=== PATIENT | male | born 1935 | race Caucasian/White ===

== ENCOUNTER 2016-04-27 12:32 | Emergency (ER) | payer MEDICARE ==
--- NOTE | 2016-04-27 16:15 | Emergency Department Record ---
History of Present Illness - General Chief complaint: Pain Stated complaint: L SHOULDER INJURY Time Seen by Provider: 04/27/16 13:03 Source: Patient, Family Mode of Arrival: Wheelchair Limitations: No limitations - History of Present Illness Initial comments: pt fell injuring his l shoulder back l hip and hit head. pt has l sided shoulder, hip and back pain. he aalso hit his head. 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 MD Complaint: Extremity pain, Joint pain, Joint swelling Onset/Timin -: Days(s) Location: Left, Shoulder, Thigh Severity scale (1-10): 3 Quality: Aching Consistency: Constant Improves with: Nothing Worsens with: Palpation Associated Symptoms: Other (back pain) - Related Data Home Medications Medication Instructions Recorded Confirmed Last Taken Clopidogrel Bisulfate [Plavix] 75 mg PO DAILY 04/29/14 04/27/16 1 Day Ago Ezetimibe/Simvastatin [Vytorin 1 each PO DAILY 04/29/14 04/27/16 1 Day Ago 10-40 mg Tablet] Sertraline HCl 100 mg PO DAILY 04/29/14 04/27/16 1 Day Ago Previous Rx's Medication Instructions Recorded Hydrocodone/Acetaminophen [[place] 0.5 - 1 tab PO TID PRN #7 tab 04/27/16 5mg/325mg] Allergies Allergy/AdvReac Type Severity Reaction Status Date / Time Penicillins Allergy Intermediate HIVES Verified 04/27/16 12:51 erythromycin lactobionate Allergy HIVES Verified 04/27/16 12:52 [From Erythrocin] Travel Screening - Travel/Exposure Within Last 30 Days Have you traveled within the last 30 days?: No - Travel/Exposure Within Last Year Have you traveled outside the [place] in the last year?: No - Additonal Travel Details Have you been exposed to anyone with a communicable illness?: No - Travel Symptoms Symptom Screening: None Review of Systems Reviewed: No additional complaints except as noted below Constitutional: Reports: As per HPI. Denies: Chills, Fever, Malaise, Night sweats, Weakness, Weight change Eyes: Reports: As per HPI. Denies: Eye discharge, Eye pain, Photophobia, Vision change ENT: Reports: As per HPI. Denies: Congestion, Dental pain, Ear pain, Epistaxis , Hearing loss, Throat pain Respiratory: Reports: As per HPI. Denies: Cough, Dyspnea, Hemoptysis, Stridor, Wheezes Cardiovascular: Reports: As per HPI. Denies: Arrhythmia, Chest pain, Dyspnea on exertion, Edema, Murmurs, Orthopnea, Palpitations, Paroxysmal nocturnal dyspnea, Rheumatic Fever, Syncope Endocrine: Reports: As per HPI. Denies: Fatigue, Heat or cold intolerance, Polydipsia, Polyuria Gastrointestinal: Reports: As per HPI. Denies: Abdominal pain, Constipation, Diarrhea, Hematemesis, Hematochezia, Melena, Nausea, Vomiting Genitourinary: Reports: As per HPI. Denies: Dysuria, Frequency, Hematuria, Incontinence, Retention, Testicular pain, Testicular mass, Urgency Musculoskeletal: Reports: As per HPI. Denies: Arthralgia, Back pain, Gout, Joint swelling, Myalgia, Neck pain Skin: Reports: As per HPI. Denies: Bruising, Change in color, Change in hair/ nails, Lesions, Pruritus, Rash Neurological: Reports: As per HPI. Denies: Abnormal gait, Confusion, Headache, Numbness, Paresthesias, Seizure, Tingling, Tremors, Vertigo, Weakness Psychiatric: Reports: As per HPI. Denies: Anxiety, Auditory hallucinations, Depression, Homicidal thoughts, Suicidal thoughts, Visual hallucinations Hematological/Lymphatic: Reports: As per HPI. Denies: Anemia, Blood Clots, Easy bleeding, Easy bruising, Swollen glands Past Medical History - SOCIAL HISTORY Smoking Status: Never smoker Alcohol Use: None Drug Use: None - RESPIRATORY Hx Respiratory Disorders: Yes Hx of CPAP: Yes - CARDIOVASCULAR Hx Cardio Disorders: Yes Hx Hypertension: Yes - NEURO Hx Neuro Disorders: Yes Hx CVA: Yes (2002, 2005 X2, Left side weakness) Hx Seizures: No - GI Hx GI Disorders: No - Hx Genitourinary Disorders: Yes Hx Kidney Stones: Yes (hx) - ENDOCRINE Hx Endocrine Disorders: No - MUSCULOSKELETAL Hx Musculoskeletal Disorders: Yes Hx Arthritis: Yes - PSYCH Hx Psych Problems: Yes Hx Anxiety: Yes Hx Depression: Yes - HEMATOLOGY/ONCOLOGY Hx Hematology/Oncology Disorders: No Family Medical History Any Significant Family History?: Yes Hx Cancer: Father Hx Diabetes: Brother/Sister *Diabetes Comment: aunt Hx Heart Disease: Mother *Heart Comment: CHF Hx Kidney Disease: Brother/Sister Hx Resp Disorders: Brother/Sister Physical Exam - General General Appearance: Alert, Oriented x3, Cooperative, Mild distress - Head Head exam: Normal inspection - Eye Eye exam: Normal appearance, PERRL, EOMI Pupils: Normal accommodation - ENT ENT exam: Normal exam, Mucous membranes moist, Normal external ear exam, Normal orophraynx, TM's normal bilaterally Ear exam: Normal external inspection. negative: External canal tenderness Nasal Exam: Normal inspection. negative: Discharge, Sinus tenderness Mouth exam: Normal external inspection, Tongue normal Teeth exam: Normal inspection. negative: Dental caries Throat exam: Normal inspection. negative: Tonsillar erythema, Tonsillar exudate - Neck Neck exam: Normal inspection, Full ROM. negative: Tenderness - Respiratory Respiratory exam: Normal lung sounds bilaterally. negative: Respiratory distress - Cardiovascular Cardiovascular Exam: Regular rate, Normal rhythm, Normal heart sounds - GI/Abdominal GI/Abdominal exam: Soft, Normal bowel sounds. negative: Tenderness - Rectal Rectal exam: Deferred - exam: Deferred - Extremities Extremities exam: Normal capillary refill, Tenderness. negative: Full ROM Image of Full Body: 1 - swelling w ecchymosis and tenderness 2 - tender 3 - tender - Back Back exam: Reports: Normal inspection, Full ROM. Denies: Muscle spasm, Rash noted, Tenderness - Neurological Neurological exam: Alert, CN II-XII intact, Normal gait, Oriented X3 - Psychiatric Psychiatric exam: Normal affect, Normal mood - Skin Skin exam: Dry, Intact, Normal color, Warm Course Vital Signs 04/27/16 12:36 Temperature 98.3 F Pulse Rate 76 Respiratory 18 Rate Blood Pressure 145/86 Pulse Ox 97 Medical Decision Making - Management Options MDM Management: Additional Work-up Planned (e.g. ADM/Transfer/OP Study) - Data Complexity MDM Data: X-Ray Ordered and/or Reviewed - Radiology Data Radiology results: Report reviewed, Image reviewed Disposition Disposition: Discharge Clinical Impression: Multiple Bruises Disposition: Home, Self-Care Condition: (1) Good Instructions: Contusion in Adults (ED), Pain Management in the Elderly (ED), Fall Prevention for Older Adults (ED) Additional Instructions: follow up with family doctor. return sooner if worse. ice to sore areas Prescriptions: Hydrocodone/Acetaminophen [[place] 5mg/325mg] 0.5 - 1 tab PO TID PRN #7 tab PRN Reason: Pain - General
[2016-04-27] MEDS ORDERED: HYDROCODONE/APAP 5/325MG TABLET PO ONE (17:40)
--- NOTE | 2016-04-27 17:46 | Emergency Department Record ---
History of Present Illness - General Chief complaint: Pain Stated complaint: L SHOULDER INJURY Time Seen by Provider: 04/27/16 13:03 Source: Patient, Family Mode of Arrival: Wheelchair Limitations: No limitations - History of Present Illness Onset/Timin -: Days(s) Location: Left, Shoulder, Thigh Severity scale (1-10): 3 Quality: Aching Consistency: Constant Improves with: Nothing Worsens with: Palpation Associated Symptoms: Other (back pain) - Related Data Home Medications Medication Instructions Recorded Confirmed Last Taken Clopidogrel Bisulfate [Plavix] 75 mg PO DAILY 04/29/14 04/27/16 1 Day Ago Ezetimibe/Simvastatin [Vytorin 1 each PO DAILY 04/29/14 04/27/16 1 Day Ago 10-40 mg Tablet] Sertraline HCl 100 mg PO DAILY 04/29/14 04/27/16 1 Day Ago Previous Rx's Medication Instructions Recorded Hydrocodone/Acetaminophen [[place] 0.5 - 1 tab PO TID PRN #7 tab 04/27/16 5mg/325mg] Allergies Allergy/AdvReac Type Severity Reaction Status Date / Time Penicillins Allergy Intermediate HIVES Verified 04/27/16 12:51 erythromycin lactobionate Allergy HIVES Verified 04/27/16 12:52 [From Erythrocin] Travel Screening - Travel/Exposure Within Last 30 Days Have you traveled within the last 30 days?: No - Travel/Exposure Within Last Year Have you traveled outside the [place] in the last year?: No - Additonal Travel Details Have you been exposed to anyone with a communicable illness?: No - Travel Symptoms Symptom Screening: None Review of Systems Constitutional: Reports: As per HPI. Denies: Chills, Fever, Malaise, Night sweats, Weakness, Weight change Eyes: Reports: As per HPI. Denies: Eye discharge, Eye pain, Photophobia, Vision change ENT: Reports: As per HPI. Denies: Congestion, Dental pain, Ear pain, Epistaxis , Hearing loss, Throat pain Respiratory: Reports: As per HPI. Denies: Cough, Dyspnea, Hemoptysis, Stridor, Wheezes Cardiovascular: Reports: As per HPI. Denies: Arrhythmia, Chest pain, Dyspnea on exertion, Edema, Murmurs, Orthopnea, Palpitations, Paroxysmal nocturnal dyspnea, Rheumatic Fever, Syncope Endocrine: Reports: As per HPI. Denies: Fatigue, Heat or cold intolerance, Polydipsia, Polyuria Gastrointestinal: Reports: As per HPI. Denies: Abdominal pain, Constipation, Diarrhea, Hematemesis, Hematochezia, Melena, Nausea, Vomiting Genitourinary: Reports: As per HPI. Denies: Dysuria, Frequency, Hematuria, Incontinence, Retention, Testicular pain, Testicular mass, Urgency Musculoskeletal: Reports: As per HPI. Denies: Arthralgia, Back pain, Gout, Joint swelling, Myalgia, Neck pain Skin: Reports: As per HPI. Denies: Bruising, Change in color, Change in hair/ nails, Lesions, Pruritus, Rash Neurological: Reports: As per HPI. Denies: Abnormal gait, Confusion, Headache, Numbness, Paresthesias, Seizure, Tingling, Tremors, Vertigo, Weakness Psychiatric: Reports: As per HPI. Denies: Anxiety, Auditory hallucinations, Depression, Homicidal thoughts, Suicidal thoughts, Visual hallucinations Hematological/Lymphatic: Reports: As per HPI. Denies: Anemia, Blood Clots, Easy bleeding, Easy bruising, Swollen glands Past Medical History - SOCIAL HISTORY Smoking Status: Never smoker Alcohol Use: None Drug Use: None - RESPIRATORY Hx Respiratory Disorders: Yes Hx of CPAP: Yes - CARDIOVASCULAR Hx Cardio Disorders: Yes Hx Hypertension: Yes - NEURO Hx Neuro Disorders: Yes Hx CVA: Yes (2002, 2005 X2, Left side weakness) Hx Seizures: No - GI Hx GI Disorders: No - Hx Genitourinary Disorders: Yes Hx Kidney Stones: Yes (hx) - ENDOCRINE Hx Endocrine Disorders: No - MUSCULOSKELETAL Hx Musculoskeletal Disorders: Yes Hx Arthritis: Yes - PSYCH Hx Psych Problems: Yes Hx Anxiety: Yes Hx Depression: Yes - HEMATOLOGY/ONCOLOGY Hx Hematology/Oncology Disorders: No Family Medical History Any Significant Family History?: Yes Hx Cancer: Father Hx Diabetes: Brother/Sister *Diabetes Comment: aunt Hx Heart Disease: Mother *Heart Comment: CHF Hx Kidney Disease: Brother/Sister Hx Resp Disorders: Brother/Sister Physical Exam - General Limitations: No limitations Course Vital Signs 04/27/16 04/27/16 12:36 16:40 Temperature 98.3 F Pulse Rate 76 Pulse Rate [ 82 Pulse Ox Probe] Respiratory 18 18 Rate Blood Pressure 145/86 Blood Pressure 131/75 [Right Arm] Pulse Ox 97 94 L Disposition Clinical Impression: Multiple contusions Disposition: Home, Self-Care Condition: (1) Good Instructions: Pain Management in the Elderly (ED), Fall Prevention for Older Adults (ED), Contusion in Adults (ED) Additional Instructions: follow up with family doctor. return sooner if worse. ice to sore areas Prescriptions: Hydrocodone/Acetaminophen [[place] 5mg/325mg] 0.5 - 1 tab PO TID PRN #7 tab PRN Reason: Pain - General
== END 2016-04-27 18:07 | disposition home or self-care (01) ==
LOC: ER 12:32
DX: S00.93XA Contusion of unspecified part of head, initial encounter (principal); S10.93XA Contusion of unspecified part of neck, initial encounter; S40.012A Contusion of left shoulder, initial encounter; S70.02XA Contusion of left hip, initial encounter; S70.01XA Contusion of right hip, initial encounter; S70.12XA Contusion of left thigh, initial encounter; S50.12XA Contusion of left forearm, initial encounter; S30.0XXA Contusion of lower back and pelvis, initial encounter; S20.222A Contusion of left back wall of thorax, initial encounter; I10 Essential (primary) hypertension; I69.354 Hemiplegia and hemiparesis following cerebral infarction affecting left non-dominant side; W01.10XA Fall on same level from slipping, tripping and stumbling with subsequent striking against unspecified object, initial encounter; Y92.009 Unspecified place in unspecified non-institutional (private) residence as the place of occurrence of the external cause
CPT/HCPCS: 70450; 72040; 72072; 72100; 99283; 99284

== ENCOUNTER 2017-01-26 05:02 | Emergency (ER) | payer MEDICARE ==
--- NOTE | 2017-01-26 05:15 | Emergency Department Record ---
History of Present Illness - General Chief Complaint: Back Pain/Injury Stated Complaint: BACK PAIN Time Seen by Provider: 01/26/17 05:09 Source: Patient Mode of Arrival: Wheelchair Limitations: No limitations - History of Present Illness Initial Comments: 81 yo male presents to ED for evaluation of worsening back pain symptoms related to chronic low back pain due to arthritis. Patient reports that his pain symptoms worsened last night, usually takes Advil for his pain symptoms but took a hydrocodone table that did not significantly improve his pain symptoms. Patient reports undergoing a rhizotomy on 01/07 for his chronic back pain symptoms, denies recent fall or injury in the last 48 hours. Patient reports a history of sciatica as well due to arthritis, and his pain symptoms this morning are not new, they are similar to previous episodes of back pain. MD Complaint: Back pain Onset/Timin -: Days(s) Similar Symptoms Previously: Yes Place: Home Radiation: Right leg Severity: Moderate Quality: Sharp Consistency: Intermittent Improves With: Immobilization Worsens With: Movement Context: Unknown Associated Symptoms: Denies other symptoms - Related Data Previous Rx's Medication Instructions Recorded Diazepam [Valium] 5 mg PO Q8H PRN #15 tab 01/26/17 Allergies Allergy/AdvReac Type Severity Reaction Status Date / Time Penicillins Allergy Intermediate HIVES Verified 01/26/17 05:14 erythromycin lactobionate Allergy HIVES Verified 01/26/17 05:14 [From Erythrocin] Review of Systems Constitutional: Denies: Chills, Fever, Malaise, Night sweats Eyes: Denies: Eye discharge, Eye pain ENT: Denies: Congestion, Ear pain, Epistaxis Respiratory: Denies: Cough, Dyspnea Cardiovascular: Denies: Chest pain, Dyspnea on exertion Endocrine: Denies: Fatigue, Heat or cold intolerance Gastrointestinal: Denies: Abdominal pain, Nausea, Vomiting Genitourinary: Denies: Incontinence, Retention Musculoskeletal: Reports: Back pain. Denies: Gout, Joint swelling Skin: Denies: Bruising, Change in color, Change in hair/nails Neurological: Denies: Abnormal gait, Confusion, Headache, Seizure Psychiatric: Denies: Anxiety Hematological/Lymphatic: Denies: Anemia, Blood Clots Past Medical History - SOCIAL HISTORY Smoking Status: Never smoker Drug Use: None - RESPIRATORY Hx Respiratory Disorders: Yes Hx of CPAP: Yes - CARDIOVASCULAR Hx Cardio Disorders: Yes Hx Hypertension: Yes - NEURO Hx Neuro Disorders: Yes Hx CVA: Yes (2002, 2006 X2, Left side weakness) Hx Seizures: No - GI Hx GI Disorders: No - Hx Genitourinary Disorders: Yes Hx Kidney Stones: Yes (hx) - ENDOCRINE Hx Endocrine Disorders: No - MUSCULOSKELETAL Hx Musculoskeletal Disorders: Yes Hx Arthritis: Yes - PSYCH Hx Psych Problems: Yes Hx Anxiety: Yes Hx Depression: Yes - HEMATOLOGY/ONCOLOGY Hx Hematology/Oncology Disorders: No Family Medical History Hx Cancer: Father Hx Diabetes: Brother/Sister *Diabetes Comment: aunt Hx Heart Disease: Mother *Heart Comment: CHF Hx Kidney Disease: Brother/Sister Hx Resp Disorders: Brother/Sister Physical Exam - General General Appearance: Alert, Oriented x3, Cooperative, Moderate distress Limitations: No limitations - Head Head exam: Atraumatic, Normocephalic, Normal inspection Head exam detail: negative: Abrasion, Contusion, Ruvalcaba's sign, General tenderness, Hematoma, Laceration - Eye Eye exam: Normal appearance. negative: Conjunctival injection, Periorbital swelling, Periorbital tenderness, Scleral icterus - ENT Ear exam: negative: Auricular hematoma, Auricular trauma Nasal Exam: negative: Active bleeding, Discharge, Dried blood, Foreign body Mouth exam: negative: Drooling, Laceration, Muffled voice, Tongue elevation - Neck Neck exam: Normal inspection. negative: Meningismus, Tenderness - Respiratory Respiratory exam: Normal lung sounds bilaterally. negative: Rales, Respiratory distress, Rhonchi, Stridor - Cardiovascular Cardiovascular Exam: Regular rate, Normal rhythm, Normal heart sounds - GI/Abdominal GI/Abdominal exam: Soft. negative: Rebound, Rigid, Tenderness - Rectal Rectal exam: Deferred - exam: Deferred - Extremities Extremities exam: Other (Contractures to the LUE). negative: Calf tenderness, Pedal edema, Tenderness - Back Back exam: Reports: Paraspinal tenderness (right paravertebral lumbar region, well healed scar to the midline, no rash is present). Denies: CVA tenderness (R ), CVA tenderness (L) - Neurological Neurological exam: Alert, Oriented X3 - Psychiatric Psychiatric exam: Normal affect, Normal mood - Skin Skin exam: Normal color. negative: Abrasion Type of lesion: negative: abrasion Course - Reevaluation(s) Reevaluation #1: 01/26/17 05:58 Patient reassessed, reports that his pain symptoms are improving, currently sleeping. Will monitro for any sings of respiratory depression for another 35- 40 minutes and reassess. Reevaluation #2: 01/26/17 06:35 Patient received IM medications > 1 hour ago, VSS have been stable without desaturations. Patient reports improvement in his pain symptoms and appears stable for discharge at this time. Disposition Disposition: Discharge Clinical Impression: Low back pain Qualifiers: Chronicity: acute Back pain laterality: right Sciatica presence: with sciatica Sciatica laterality: sciatica of right side Qualified Code(s): M54.41 - Lumbago with sciatica, right side Disposition: Home, Self-Care Condition: (2) Stable Instructions: Low Back Strain (ED) Additional Instructions: Return to ED if your symptoms worsen or if you have any concerns. Valium as needed for your pain symptoms. Follow-up with your family doctor in 3-5 days as directed. Prescriptions: Diazepam [Valium] 5 mg PO Q8H PRN #15 tab PRN Reason: Pain - Moderate (5-7) Forms: Patient Portal Access Time of Disposition: 06:36 Quality - Quality Measures Quality Measures: N/A - Blood Pressure Screening Does Patient Have Any of the Following: Active Dx of HTN Blood Pressure Classification: Pre-Hypertensive BP Reading Systolic Measurement: 179 Diastolic Measurement: 84 Screening for High Blood Pressure: Patient Exclusion, Hx of HTN [G9744]
[2017-01-26] MEDS: DIAZEPAM 5 MG/1 ML TUBX IM ONE (05:24)
[2017-01-26] MEDS: MORPHINE SULFATE 5 MG/ML PFS IM ONE (05:24)
== END 2017-01-26 06:49 | disposition home or self-care (01) ==
LOC: ER 05:02
DX: M54.41 Lumbago with sciatica, right side (principal)
CPT/HCPCS: 99283 ×2; 96372; J2270; J3360

== ENCOUNTER 2017-09-11 10:24 | Emergency (ER) | payer MEDICARE ==
[2017-09-11] MEDS ORDERED: TRANEXAMIC ACID 1,000 MG/10 ML ML TOP ONE (10:36)
--- NOTE | 2017-09-11 10:42 | Emergency Department Record ---
History of Present Illness - General Stated complaint: BLOOD CLOTS IN LT EAR Time Seen by Provider: 09/11/17 10:36 Source: Patient Mode of Arrival: Ambulatory Limitations: No limitations - History of Present Illness Initial comments: 82 yo male presents with intermittent bleeding from his left ear since yesterday. He pulled wax out and then itched the ear. The bleeding has been coming and going since then. He is on plavix. NO other symptoms. No headache. No changes in his health. He has had 3 strokes in the past. MD complaint: Ear pain (Ear bleeding) -: Days(s) (1) Location: L ear Severity: Mild Quality: Other (No pain) Improves with: Other (placing cotton in it the canal) Worsens with: None Context- Ear: Direct trauma (scratched the ear) - Related Data Allergies Allergy/AdvReac Type Severity Reaction Status Date / Time Penicillins Allergy Intermediate HIVES Verified 09/11/17 10:40 erythromycin lactobionate Allergy HIVES Verified 09/11/17 10:40 [From Erythrocin] Review of Systems Constitutional: Denies: Chills, Fever, Malaise, Weakness Eyes: Denies: Eye discharge, Eye pain, Photophobia, Vision change ENT: Reports: Other (ear canal bleeding). Denies: Congestion, Throat pain Cardiovascular: Denies: Chest pain, Syncope Endocrine: Denies: Fatigue Gastrointestinal: Denies: Abdominal pain, Diarrhea, Nausea, Vomiting Genitourinary: Denies: Dysuria, Frequency, Hematuria Musculoskeletal: Denies: Arthralgia, Back pain, Myalgia Skin: Denies: Bruising, Change in color, Rash Neurological: Denies: Headache, Numbness, Weakness Psychiatric: Denies: Anxiety Hematological/Lymphatic: Reports: Easy bleeding, Easy bruising. Denies: Blood Clots, Swollen glands Past Medical History - SOCIAL HISTORY Smoking Status: Never smoker Drug Use: None - RESPIRATORY Hx Respiratory Disorders: Yes Hx of CPAP: Yes - CARDIOVASCULAR Hx Cardio Disorders: Yes Hx Hypertension: Yes - NEURO Hx Neuro Disorders: Yes Hx CVA: Yes (2002, 2005 X2, Left side weakness) Hx Seizures: No - GI Hx GI Disorders: No - Hx Genitourinary Disorders: Yes Hx Kidney Stones: Yes (hx) - ENDOCRINE Hx Endocrine Disorders: No - MUSCULOSKELETAL Hx Musculoskeletal Disorders: Yes Hx Arthritis: Yes - PSYCH Hx Psych Problems: Yes Hx Anxiety: Yes Hx Depression: Yes - HEMATOLOGY/ONCOLOGY Hx Hematology/Oncology Disorders: No Family Medical History Hx Cancer: Father Hx Diabetes: Brother/Sister *Diabetes Comment: aunt Hx Heart Disease: Mother *Heart Comment: CHF Hx Kidney Disease: Brother/Sister Hx Resp Disorders: Brother/Sister Physical Exam - General General Appearance: Alert, Oriented x3, Cooperative, No acute distress Limitations: No limitations - Head Head exam: Normal inspection - Eye Eye exam: Normal appearance, PERRL. negative: Conjunctival injection, Scleral icterus - ENT ENT exam: Normal exam, Mucous membranes moist, Normal orophraynx Ear exam: Other (small abrasion with mild oozing, TM appears intact, no hemotympanum). negative: Normal external inspection, Auricular hematoma, Auricular trauma, External canal tenderness Nasal Exam: Normal inspection Mouth exam: Normal external inspection Teeth exam: Normal inspection - Neck Neck exam: Normal inspection - Respiratory Respiratory exam: Normal lung sounds bilaterally. negative: Respiratory distress - Cardiovascular Cardiovascular Exam: Regular rate, Normal rhythm, Normal heart sounds - Neurological Neurological exam: Alert, Normal gait, Oriented X3 - Psychiatric Psychiatric exam: negative: Normal affect, Normal mood - Skin Skin exam: Abrasion Course - Reevaluation(s) Reevaluation #1: 09/11/17 11:05 The external canal demonstrated slight ooze from likely the inferior portion of the mid canal TXA topical on cotton was placed in the ear 09/11/17 11:56 The process was repeated once The bleeding stopped. He had a visible abrasion inferior mid canal An ear wick with cortisporin otic was placed to left for 3 days We discussed home care, no hearing aid, reasons to return and follow up removal in 3 days. Disposition Disposition: Discharge Clinical Impression: Abrasion of ear canal Qualifiers: Encounter type: initial encounter Laterality: left Qualified Code(s): S00.412A - Abrasion of left ear, initial encounter Disposition: Home, Self-Care Condition: (1) Good Instructions: Abrasion (ED) Additional Instructions: Return to the ED if you have any pain, bleeding, or concerns Do not use the hearing aid on the left for 3 days See your doctor to have the ear wick removed in 3 days or return to the ED Use the drops 3 times daily as directed. Forms: Patient Portal Access Quality - Quality Measures Quality Measures: N/A - Blood Pressure Screening Does Patient Have Any of the Following: Active Dx of HTN Blood Pressure Classification: Pre-Hypertensive BP Reading Systolic Measurement: 124 Diastolic Measurement: 74 Screening for High Blood Pressure: Patient Exclusion, Hx of HTN [G9744] Pre-Hypertensive Follow-up Interventions: Referral to alternative/primary care provider.
[2017-09-11] MEDS ORDERED: NEOMYCIN/POLYMYXIN B SULF/HC 10ML BTL OT ONE (11:41)
== END 2017-09-11 12:15 | disposition home or self-care (01) ==
LOC: ER 10:24
DX: S00.412A Abrasion of left ear, initial encounter (principal); W22.8XXA Striking against or struck by other objects, initial encounter; I10 Essential (primary) hypertension; Z79.01 Long term (current) use of anticoagulants
CPT/HCPCS: 99282

== ENCOUNTER 2017-10-18 19:51 | Emergency (ER) | payer MEDICARE ==
--- NOTE | 2017-10-18 20:00 | Emergency Department Record ---
History of Present Illness - General Stated complaint: OPEN SORE ON BUTTOCKS Time Seen by Provider: 10/18/17 19:52 Source: Patient, Family Mode of Arrival: Ambulatory Limitations: No limitations - History of Present Illness Initial comments: 82 yo male presents with sore in the glutteal area for over one month. The areas have been painful and bleed. He has not been able to get an appointment with his doctor. He is on Plavix. No fevers. No changes in urination or bowel movements. He has never been seen in a wound center. MD complaint: Lesion -: Month(s) (1) Hx Tetanus Toxoid Vaccination: Yes Year of Tetanus Vaccination: 2010 Location: Buttocks Quality: Aching Consistency: Constant Improves with: None Worsens with: Immobilization Context: None Associated symptoms: Other Treatments Prior to Arrival: None - Related Data Previous Rx's Medication Instructions Recorded Mupirocin Calcium [Bactroban] 30 gm TP BID #1 cream..g. 10/18/17 Nystatin 30 gm TP BID #1 cream..g. 10/18/17 Allergies Allergy/AdvReac Type Severity Reaction Status Date / Time Penicillins Allergy Intermediate HIVES Unverified 09/14/17 09:38 erythromycin lactobionate Allergy HIVES Unverified 09/14/17 09:38 [From Erythrocin] Review of Systems Constitutional: Denies: Chills, Fever, Malaise, Weakness Eyes: Denies: Eye discharge ENT: Denies: Congestion, Throat pain Respiratory: Denies: Cough Cardiovascular: Denies: Chest pain, Syncope Gastrointestinal: Denies: Abdominal pain, Constipation, Nausea, Vomiting Genitourinary: Denies: Dysuria Musculoskeletal: Denies: Arthralgia, Back pain, Myalgia Skin: Reports: Lesions. Denies: Bruising, Change in color Neurological: Denies: Confusion Psychiatric: Denies: Anxiety Hematological/Lymphatic: Denies: Blood Clots, Easy bleeding, Easy bruising Past Medical History - SOCIAL HISTORY Smoking Status: Never smoker Drug Use: None - RESPIRATORY Hx Respiratory Disorders: Yes Hx of CPAP: Yes - CARDIOVASCULAR Hx Cardio Disorders: Yes Hx Hypertension: Yes - NEURO Hx Neuro Disorders: Yes Hx CVA: Yes (2002, 2006 X2, Left side weakness) Hx Seizures: No - GI Hx GI Disorders: No - Hx Genitourinary Disorders: Yes Hx Kidney Stones: Yes (hx) - ENDOCRINE Hx Endocrine Disorders: No - MUSCULOSKELETAL Hx Musculoskeletal Disorders: Yes Hx Arthritis: Yes - PSYCH Hx Psych Problems: Yes Hx Anxiety: Yes Hx Depression: Yes - HEMATOLOGY/ONCOLOGY Hx Hematology/Oncology Disorders: No Family Medical History Hx Cancer: Father Hx Diabetes: Brother/Sister *Diabetes Comment: aunt Hx Heart Disease: Mother *Heart Comment: CHF Hx Kidney Disease: Brother/Sister Hx Resp Disorders: Brother/Sister Physical Exam - General General Appearance: Alert, Oriented x3, Cooperative, No acute distress Limitations: No limitations - Head Head exam: Normal inspection - Eye Eye exam: Normal appearance - ENT ENT exam: Normal exam Ear exam: Normal external inspection Nasal Exam: Normal inspection Mouth exam: Normal external inspection - Neck Neck exam: Normal inspection - Respiratory Respiratory exam: Normal lung sounds bilaterally. negative: Respiratory distress - Cardiovascular Cardiovascular Exam: Regular rate, Normal rhythm, Normal heart sounds - GI/Abdominal GI/Abdominal exam: Soft. negative: Tenderness - Extremities Extremities exam: Normal inspection Image of Full Body: 1 - in the midline glutteal fold the patient has erythema, superficial skin irritation, minimal weeping. No ulceration. - Neurological Neurological exam: Alert, Oriented X3. negative: Motor sensory deficit ( chronic changes from stroke) - Psychiatric Psychiatric exam: Normal affect, Normal mood - Skin Skin exam: Other (superficial irritation with weeping, consistent with superficial yeast) Course - Reevaluation(s) Reevaluation #1: 10/18/17 20:02 Vitals reviewed. No fever. No tachycardia 10/18/17 20:16 The findings are superficial at this time We discussed that the care is important to prevent an actual ulcer develops. There is no sign of deeper tissue involvement at this time We discussed home fci care with a donut, cleaning twice daily with soap and water then apply the bactroban and nystatin They are to call his PCP tomorrow to stress again need to be seen and refer to wound clinic Call the [facility] wound clinic at [phone] tomorrow to ask about available appointments 10/18/17 20:18 Disposition Disposition: Discharge Clinical Impression: Tinea corporis Disposition: Home, Self-Care Condition: (1) Good Instructions: Tinea Corporis (ED) Additional Instructions: Clean the area twice daily with soap and water then dry thoroughly Avoid any pressure on the area You will need to be seen again in the next 2 days to recheck the area Prescriptions: Mupirocin Calcium [Bactroban] 30 gm TP BID #1 cream..g. Nystatin 30 gm TP BID #1 cream..g. Forms: Patient Portal Access Time of Disposition: 20:21 Quality - Quality Measures Quality Measures: N/A - Blood Pressure Screening Does Patient Have Any of the Following: No Blood Pressure Classification: Hypertensive Reading Systolic Measurement: 145 Diastolic Measurement: 75 Screening for High Blood Pressure: < Pre-Hypertensive BP, F/U Documented > [ G8950] Pre-Hypertensive Follow-up Interventions: Referral to alternative/primary care provider.
[2017-10-18] MEDS ORDERED: FLUCONAZOLE 100 MG TABLET PO ONE (20:14)
[2017-10-18] MEDS ORDERED: NYSTATIN 15 GM TUBE TOP STA (20:14)
[2017-10-18] MEDS ORDERED: MUPIROCIN OINT 22 GM TUBE TOP STA (20:15)
== END 2017-10-18 20:46 | disposition home or self-care (01) ==
LOC: ER 19:51
DX: B35.4 Tinea corporis (principal); I10 Essential (primary) hypertension; Z79.01 Long term (current) use of anticoagulants
CPT/HCPCS: 99282; 99283

== ENCOUNTER 2018-04-26 13:56 | Day surgery (SDC) | payer MEDICARE ==
[~2018-04-26 13:56] MED LIST: ACETAMINOPHEN 1,000 MG/100 ML BTL IV ONE
[2018-04-26] MEDS ORDERED: FENTANYL PF 100MCG/2ML VIAL IV ONE (13:57)
[2018-04-26] MEDS ORDERED: DEXAMETHASONE 4 MG/ML 1ML VIAL IVP ONE (13:57)
[2018-04-26] MEDS ORDERED: BUPIVACAINE 0.5% (5MG/ML) PF 30ML VIAL IVP ONE (13:57)
[2018-04-26] MEDS ORDERED: EPHEDRINE SULFATE 50 MG/ML ML IV ONE (13:57)
[2018-04-26] MEDS ORDERED: PROPOFOL 10 MG/ML VIAL IV ONE (13:57)
[2018-04-26] MEDS ORDERED: LIDOCAINE 2% MDV (20MG/ML) 20ML VIAL IV ONE (13:57)
== END 2018-04-26 17:48 | disposition home or self-care (01) ==
LOC: SUR 13:56
PROVIDERS: ATTEND Urology
DX: N47.1 Phimosis (principal); E78.00 Pure hypercholesterolemia, unspecified; Z79.01 Long term (current) use of anticoagulants; Z86.73 Personal history of transient ischemic attack (TIA), and cerebral infarction without residual deficits; G47.33 Obstructive sleep apnea (adult) (pediatric)
CPT/HCPCS: 54161; 00920; J3010

== ENCOUNTER 2018-05-24 09:53 | Emergency (ER) | payer MEDICARE ==
[2018-05-24] MEDS: HYDROCODONE/APAP 5/325MG TABLET PO ONE (10:53)
--- NOTE | 2018-05-24 11:07 | Emergency Department Record ---
History of Present Illness - General Chief complaint: Pain Stated complaint: PAINFUL WHEN WALKING Time Seen by Provider: 05/24/18 09:58 Source: Patient Mode of Arrival: Wheelchair Limitations: No limitations - History of Present Illness Initial comments: pt has pain in his l hip that is new and kept him awake all night. it is a burning pain. he denies injury. he has had a hip replacement by dr franz. Complaint: Joint pain Location: Left, Other History of Same: No Radiation: Distal Quality: Burning Consistency: Constant Improves with: Nothing Worsens with: Nothing Associated Symptoms: Denies other symptoms - Related Data Previous Rx's Medication Instructions Recorded Hydrocodone/Acetaminophen [[place] 1 each PO Q8HR #10 tablet 05/24/18 5-325 Tablet] Allergies Allergy/AdvReac Type Severity Reaction Status Date / Time Penicillins Allergy Intermediate HIVES Verified 05/24/18 10:00 erythromycin lactobionate Allergy HIVES Verified 05/24/18 10:00 [From Erythrocin] Travel Screening - Travel/Exposure Within Last 30 Days Have you traveled within the last 30 days?: No Review of Systems Reviewed: No additional complaints except as noted below Constitutional: Reports: As per HPI. Denies: Chills, Fever, Malaise, Night sweats, Weakness, Weight change Eyes: Reports: As per HPI. Denies: Eye discharge, Eye pain, Photophobia, Vision change ENT: Reports: As per HPI. Denies: Congestion, Dental pain, Ear pain, Epistaxis , Hearing loss, Throat pain Respiratory: Reports: As per HPI. Denies: Cough, Dyspnea, Hemoptysis, Stridor, Wheezes Cardiovascular: Reports: As per HPI. Denies: Arrhythmia, Chest pain, Dyspnea on exertion, Edema, Murmurs, Orthopnea, Palpitations, Paroxysmal nocturnal dyspnea, Rheumatic Fever, Syncope Endocrine: Reports: As per HPI. Denies: Fatigue, Heat or cold intolerance, Polydipsia, Polyuria Gastrointestinal: Reports: As per HPI. Denies: Abdominal pain, Constipation, Diarrhea, Hematemesis, Hematochezia, Melena, Nausea, Vomiting Genitourinary: Reports: As per HPI. Denies: Dysuria, Frequency, Hematuria, Incontinence, Retention, Testicular pain, Testicular mass, Urgency Musculoskeletal: Reports: As per HPI. Denies: Arthralgia, Back pain, Gout, Joint swelling, Myalgia, Neck pain Skin: Reports: As per HPI. Denies: Bruising, Change in color, Change in hair/ nails, Lesions, Pruritus, Rash Neurological: Reports: As per HPI. Denies: Abnormal gait, Confusion, Headache, Numbness, Paresthesias, Seizure, Tingling, Tremors, Vertigo, Weakness Psychiatric: Reports: As per HPI. Denies: Anxiety, Auditory hallucinations, Depression, Homicidal thoughts, Suicidal thoughts, Visual hallucinations Hematological/Lymphatic: Reports: As per HPI. Denies: Anemia, Blood Clots, Easy bleeding, Easy bruising, Swollen glands Past Medical History - SOCIAL HISTORY Smoking Status: Never smoker Alcohol Use: None Drug Use: None - RESPIRATORY Hx Respiratory Disorders: Yes Hx Sleep Apnea: Yes Hx of CPAP: Yes - CARDIOVASCULAR Hx Cardio Disorders: Yes Hx Hypertension: Yes - NEURO Hx Neuro Disorders: Yes Hx CVA: Yes (2002, 2005 X2, Left side weakness) - GI Hx GI Disorders: No - Hx Genitourinary Disorders: Yes Hx Kidney Stones: Yes (hx) - ENDOCRINE Hx Endocrine Disorders: No - MUSCULOSKELETAL Hx Musculoskeletal Disorders: Yes - PSYCH Hx Psych Problems: Yes Hx Anxiety: Yes Hx Depression: Yes - HEMATOLOGY/ONCOLOGY Hx Hematology/Oncology Disorders: No Family Medical History Any Significant Family History?: Yes Hx Cancer: Father Hx Diabetes: Brother/Sister *Diabetes Comment: aunt Hx Heart Disease: Mother *Heart Comment: CHF Hx Kidney Disease: Brother/Sister Hx Resp Disorders: Brother/Sister Physical Exam - General General Appearance: Alert, Oriented x3, Cooperative, Mild distress - Head Head exam: Normal inspection - Eye Eye exam: Normal appearance, PERRL, EOMI Pupils: Normal accommodation - ENT ENT exam: Normal exam, Mucous membranes moist, Normal external ear exam, Normal orophraynx Ear exam: Normal external inspection. negative: External canal tenderness Nasal Exam: Normal inspection. negative: Discharge, Sinus tenderness Mouth exam: Normal external inspection, Tongue normal Teeth exam: Normal inspection. negative: Dental caries Throat exam: Normal inspection. negative: Tonsillar erythema, Tonsillar exudate - Neck Neck exam: Normal inspection, Full ROM. negative: Tenderness - Respiratory Respiratory exam: Normal lung sounds bilaterally. negative: Respiratory distress - Cardiovascular Cardiovascular Exam: Regular rate, Normal rhythm, Systolic murmur - GI/Abdominal GI/Abdominal exam: Soft, Normal bowel sounds. negative: Tenderness - Rectal Rectal exam: Deferred - exam: Deferred - Extremities Extremities exam: Normal inspection, Full ROM, Normal capillary refill. negative: Tenderness - Back Back exam: Reports: Normal inspection, Full ROM. Denies: Muscle spasm, Rash noted, Tenderness - Neurological Neurological exam: Alert, CN II-XII intact, Normal gait, Oriented X3 - Psychiatric Psychiatric exam: Normal affect, Normal mood - Skin Skin exam: Dry, Intact, Normal color, Warm Course Vital Signs 05/24/18 10:02 Temperature 98.1 F Pulse Rate 71 Respiratory 20 Rate Blood Pressure 137/66 Pulse Ox 95 - Reevaluation(s) Reevaluation #1: 05/24/18 11:46 d/w dr franz who will see pt tomorrow Disposition Disposition: Discharge Clinical Impression: Hip pain, acute Qualifiers: Laterality: left Qualified Code(s): M25.552 - Pain in left hip Disposition: Home, Self-Care Condition: (1) Good Instructions: Hip Pain (ED) Additional Instructions: follow up with dr franz tomorrow without fail. return sooner if worse Prescriptions: Hydrocodone/Acetaminophen [[place] 5-325 Tablet] 1 each PO Q8HR #10 tablet Referrals: PRAVEEN FRANZ [DOCTOR OF OSTEOPATH] - [facility] [Provider Group] Forms: Patient Portal Access Quality - Quality Measures Quality Measures: N/A - Blood Pressure Screening Does Patient Have Any of the Following: No Blood Pressure Classification: Pre-Hypertensive BP Reading Systolic Measurement: 137 Diastolic Measurement: 66 Screening for High Blood Pressure: < Pre-Hypertensive BP, F/U Documented > [ G8950] Pre-Hypertensive Follow-up Interventions: Follow-up with rescreen every year.
--- NOTE | 2018-05-26 17:09 | RADIOLOGY REPORT ---
EXAM: HIP,UNILAT, 2-3 VIEW LEFT HISTORY: LEFT HIP PAIN FOR ONE WEEK. NO KNOWN INJURY. HISTORY OF PRIOR BILATERAL TOTAL HIP ARTHROPLASTY. TECHNIQUE: AP pelvis and AP and lateral views of the left hip. COMPARISON: Pelvis and left hip radiographs 04/27/2016. FINDINGS: Bilateral femoral acetabular arthroplasties appear intact and similar from comparison radiographs. Hardware alignment appears maintained. No progressive periprosthetic lucency is appreciated. No acute fracture is identified. No evidence of left hip joint dislocation. Chronic fracture deformity of the proximal left femur with interval osseous remodeling. Vascular calcifications are noted. IMPRESSION: 1. NO ACUTE OSSEOUS FINDINGS. 2. LIKELY FURTHER INTERVAL REMODELING AT CHRONIC PROXIMAL LEFT FEMUR FRACTURE SITE SINCE 2017 COMPARISON. 3. BILATERAL FEMORAL ACETABULAR ARTHROPLASTIES APPEAR INTACT. JOB NUMBER: [id number] [facility]
== END 2018-05-24 12:19 | disposition home or self-care (01) ==
LOC: ER 09:53
DX: M25.552 Pain in left hip (principal); I10 Essential (primary) hypertension; Z96.642 Presence of left artificial hip joint
CPT/HCPCS: 99283

== ENCOUNTER 2019-02-09 10:22 | Observation (INO) | payer MEDICARE ==
[2019-02-09 10:48] LABS: ABSOLUTE NEUTROPHIL COUNT 4.32; BASO % 0.2 % (0-6); EOS % 0.9 % (0-6); GRAN % 66.8 % (47-80); HEMATOCRIT 40.2 % (42.0-52.0); HEMOGLOBIN 12.8 gm/dl (14.0-18.0); MEAN CELL VOLUME 88.9 fl (81-97); MEAN CORPUSCULAR HEMOGLOBIN 28.3 pg (27-33); MEAN CORPUSCULAR HGB CONC 31.8 g/dl (32-36); MEAN PLATELET VOLUME 9.6 fl (7.4-10.4); MONO % 10.1 % (0-9); PLATELET COUNT 166 K/uL (130-400); RED BLOOD COUNT 4.52 M/uL (4.40-5.70); RED CELL DISTRIBUTION WIDTH 16.4 % (11.5-14.5); WHITE BLOOD COUNT W/O DIFF 6.5 K/uL (4.2-12.2)
--- NOTE | 2019-02-09 10:51 | Emergency Department Record ---
History of Present Illness - General Chief Complaint: Fall Injury Stated Complaint: FALL Time Seen by Provider: 02/09/19 10:23 Source: Patient, Family Mode of Arrival: EMS Limitations: No limitations - History of Present Illness Initial Comments: The patient is here due to his L leg being weaker than normal this AM. The patient has a hx of a large L sided CVA with chronic L arm and leg weakness. He does have minimal movement of his L leg and is usually able to transfer with it. He was getting up with his 's help and he states he suddenly was unable to control the L leg and felt he was going to fall. His then helped him to the floor. He did not fall and did not bump his head. The patient denies any ALICEA, neck pain, CP, SOB or JESUS but his does state his breathing has seemed a little labored recently. The patient did get up this AM at 9:00 and was able to walk using his donna-walker and was able to use the bathroom and get into the ower with some help. He did need some help to lift the L leg to get into the shower which he is normally able to do. Later when he was getting dressed is when the L leg suddenly seemed to not be able to support his weight. MD Complaint: Other Onset/Timin -: Hour(s) Fall From: Standing Fall Witnessed: Yes, by family - Related Data Allergies Allergy/AdvReac Type Severity Reaction Status Date / Time Penicillins Allergy Intermediate HIVES Verified 02/09/19 10:48 erythromycin lactobionate Allergy HIVES Verified 02/09/19 10:48 [From Erythrocin] Review of Systems Constitutional: Denies: Chills, Fever Eyes: Denies: Eye discharge ENT: Denies: Congestion Respiratory: Denies: Cough, Dyspnea Cardiovascular: Denies: Arrhythmia Endocrine: Denies: Fatigue Gastrointestinal: Denies: Nausea Genitourinary: Denies: Dysuria Musculoskeletal: Denies: Arthralgia Past Medical History - SOCIAL HISTORY Smoking Status: Never smoker Drug Use: None - RESPIRATORY Hx Respiratory Disorders: Yes Hx Sleep Apnea: Yes Hx of CPAP: Yes - CARDIOVASCULAR Hx Cardio Disorders: Yes Hx Hypertension: Yes - NEURO Hx Neuro Disorders: Yes Hx CVA: Yes (2002, 2005 X2, Left side weakness) - GI Hx GI Disorders: No - Hx Genitourinary Disorders: Yes Hx Kidney Stones: Yes (hx) - ENDOCRINE Hx Endocrine Disorders: No - MUSCULOSKELETAL Hx Musculoskeletal Disorders: Yes - PSYCH Hx Psych Problems: Yes Hx Anxiety: Yes Hx Depression: Yes - HEMATOLOGY/ONCOLOGY Hx Hematology/Oncology Disorders: No Family Medical History Hx Cancer: Father Hx Diabetes: Brother/Sister *Diabetes Comment: aunt Hx Heart Disease: Mother *Heart Comment: CHF Hx Kidney Disease: Brother/Sister Hx Resp Disorders: Brother/Sister Physical Exam - General General Appearance: Alert, Oriented x3, Cooperative, No acute distress - Head Head exam: Atraumatic, Normocephalic - Eye Eye exam: Normal appearance, PERRL - ENT Throat exam: Normal inspection. negative: Tonsillar erythema, Tonsillar exudate - Neck Neck exam: Normal inspection, Full ROM. negative: Tenderness - Respiratory Respiratory exam: Normal lung sounds bilaterally. negative: Respiratory distress - Cardiovascular Cardiovascular Exam: Regular rate, Normal rhythm, Normal heart sounds. negative: Diastolic murmur, Systolic murmur - GI/Abdominal GI/Abdominal exam: Soft, Normal bowel sounds. negative: Tenderness - Extremities Extremities exam: negative: Normal inspection (The L arm and leg are contracted upper > lower.) - Neurological Neurological exam: Abnormal gait, Alert, Motor sensory deficit (The L arm has no motor function and the L leg is 2/5 in strength. The patient states the strength presently is at his baseline. He is just unable to make it work like he normally is able to. He is unable to lift the L leg off the bed and he states that is normal for him.), Oriented X3, Other (The patient does state he has normal sensation to light touch to the L arm and leg which is normal for the patient.). negative: Normal gait Course - Reevaluation(s) Reevaluation #1: The patient is resting comfortably at this time with no new complaints. I did discuss the lab and CT results with the patient and . The patient's does state the L leg has been getting progressively weaker for some time. Due to the issues with taking care of him at home and due to the possibility he may have had a new slight CVA due to the L leg weakness, I did recommend hospital admission and the patient and did agree. I then did discuss the case with Dr. Wyatt and he does accept the patient for admission. 02/09/19 11:47 Medical Decision Making - Data Complexity MDM Data: Labs Ordered and/or Reviewed, X-Ray Ordered and/or Reviewed, EKG Ordered and/or Reviewed - Lab Data Result diagrams: 02/09/19 10:35 02/09/19 10:35 - EKG Data -: EKG Interpreted by Me EKG: No Acute Changes, Unchanged From Previous - Radiology Data Radiology results: Report reviewed (CXR: Neg for acute changes. Head CT: Large R frontal-parietal CVA, neg for acute changes.) Disposition Disposition: Admit Clinical Impression: Imbalance due to old stroke, Weakness Disposition: Still a Patient at [facility] Decision to Admit: Admit from ER Decision to Admit Date: 02/09/19 Decision to Admit Time: 11:49 Accepting Physician: Yoselin Time Discussed w/Accepting Physician: 11:49 Condition: (2) Stable Forms: Patient Portal Access Time of Disposition: 11:49 Quality - Quality Measures Quality Measures: N/A - Blood Pressure Screening View Details: Yes Does Patient Have Any of the Following: No Blood Pressure Classification: Normal BP Reading Systolic Measurement: 115 Diastolic Measurement: 77 Screening for High Blood Pressure: < Normal BP, F/U Not Required > [G8783]
[2019-02-09 10:58] LABS: BLOOD UREA NITROGEN 16 mg/dL (8-23); EST GLOMERULAR FILTRATION RATE > 60 mL/min
[2019-02-09 10:59] LABS: TOTAL PROTEIN 7.3 g/dL (6.6-8.7)
[2019-02-09 11:00] LABS: PARTIAL THROMBOPLASTIN TIME 24.7 SECONDS (24.5-39.1); PROTHROMBIN TIME (PATIENT) 10.5 SECONDS (9.5-12.1)
[2019-02-09 11:01] LABS: GLUCOSE,RANDOM 144 mg/dL (74-109)
[2019-02-09 11:03] LABS: ALT/SGPT 42 U/L (<41); AST/SGOT 41 U/L (10.0-50.0)
[2019-02-09 11:04] LABS: ALB/GLOB RATIO 1.5 (1.1-1.8); ALBUMIN 4.4 g/dL (4.0-5.0); ALKALINE PHOSPHATASE 85 U/L (40-129)
[2019-02-09 11:05] LABS: NTpro B-NATRIURETIC PEPTIDE 93.22 pg/mL (<450)
--- NOTE | 2019-02-09 11:32 | RADIOLOGY REPORT ---
EXAMINATION: Two View Chest Radiographs EXAM DATE: 02/09/2019 11:18 AM TECHNIQUE: Frontal and lateral views INDICATION: JESUS COMPARISON: None ENCOUNTER: Not applicable FINDINGS: PA and lateral views the chest show mild cardiomegaly with normal pulmonary vascularity. There is no focal lung consolidation, pleural effusion, or pneumothorax. Lung volumes are low. IMPRESSION: No acute cardiopulmonary abnormality. Dictated by: Siddharth Echevarria MD on 02/09/2019 11:30 AM. .
--- NOTE | 2019-02-09 11:42 | CT SCAN REPORT ---
EXAMINATION: CT Head without IV Contrast EXAM DATE: 02/09/2019 11:21 AM TECHNIQUE: Standard protocol CT images of the head were obtained without intravenous contrast. Patel l and sagittal reconstructed images were created. INDICATION: L leg weakness. COMPARISON: CT head 04/27/2016 HAND DOMINANCE: Unknown. ENCOUNTER: Not applicable FINDINGS: 1. There is no intracranial mass effect, midline shift, extraaxial fluid collection or hemorrhage. 2. The ventricles, sulci and cisterns show age-related prominence. 3. Large old infarct in the right frontoparietal lobe.. 4. There is no fracture. 5. The visualized aspects of the orbits, paranasal sinuses, and mastoid air cells are normal. IMPRESSION: 1. No CT evidence of acute intracranial abnormality. 2. Redemonstrated is a large old infarct in the right frontoparietal lobes. A small acute abnormality could be missed in this setting. Consider MRI correlation, as clinically directed. Dictated by: Sanjiv Garcia MD on 02/09/2019 11:30 AM. .
[2019-02-09] MEDS ORDERED: ASPIRIN 325 MG TABLET PO ONE (11:49)
[2019-02-09] MEDS ORDERED: ACETAMINOPHEN 325 MG TAB PO PRN (12:49)
[2019-02-09] MEDS: EZETIMIBE 10 MG TABLET PO SCH (13:39)
[2019-02-09] MEDS: CLOPIDOGREL 75MG TABLET PO SCH (13:39)
[2019-02-09] MEDS: SIMVASTATIN 20 MG TABLET PO SCH (13:39)
--- NOTE | 2019-02-09 14:16 | History & Physical ---
History of Present Illness - Date of Service Date of Service for History & Physical: 02/09/19 - History of Present Illness Admitting Diagnosis: 1. Worsening L Leg Weakness with hx of CVA. History of Present Illness: Mr. Rosales is a 83 y/o male who came in after experiencing left leg weakness this afternoon while at home. The patient at baseline has weakness of his left side due to a previous stroke but says that this worsened today. He says he fell side-ways against the wall and his helped to lower him to the ground before EMS arrived. He says his left leg just wouldn't lift up and her couldn't support his weight. He states that he walks using a walking stick since having the stroke and he has had frequent falls since then. The patient denies feeling weakness if the left upper extremity, and he denies headaches, vision changes or slurring of speech. He denies injury during the fall and was able to be lifted up by EMS personnel. ED course: Vitals: BP 115/77 HR 98, RR 17, T 98.9, Sats 95% EKG: sinus with LVH, no acute st-t changes. CXR: negative for acute cardiopulmonary findings. CT head w/o contrast showing old infarct The patient did not show any further decline in neurological function and there were no new deficits noted. The patient is admitted to the general medical floor for further management. PCP: Dr. Jim Ayon Travel Screening - Travel/Exposure Within Last 30 Days Have you traveled within the last 30 days?: No - Travel/Exposure Within Last Year Have you traveled outside the [place] in the last year?: No - Additonal Travel Details Have you been exposed to anyone with a communicable illness?: No - Travel Symptoms Symptom Screening: None Review of Systems Constitutional: Denies: Chills, Fever Eyes: Denies: Eye discharge ENT: Denies: Congestion Respiratory: Denies: Cough, Dyspnea Cardiovascular: Denies: Arrhythmia Endocrine: Denies: Fatigue Gastrointestinal: Denies: Nausea Genitourinary: Denies: Dysuria Musculoskeletal: Denies: Arthralgia Past Medical History - SOCIAL HISTORY Smoking Status: Never smoker Alcohol Use: None Drug Use: None - RESPIRATORY Hx Respiratory Disorders: Yes Hx Sleep Apnea: Yes Hx of CPAP: Yes - CARDIOVASCULAR Hx Cardio Disorders: Yes Hx Hypertension: Yes - NEURO Hx Neuro Disorders: Yes Hx CVA: Yes (2002, 2005 X2, Left side weakness) - GI Hx GI Disorders: No - Hx Genitourinary Disorders: Yes Hx Kidney Stones: Yes (hx) - ENDOCRINE Hx Endocrine Disorders: No Hx Diabetes: No Hx Thyroid Disease: No - MUSCULOSKELETAL Hx Musculoskeletal Disorders: Yes Hx Arthritis: Yes - PSYCH Hx Psych Problems: Yes Hx Anxiety: Yes Hx Depression: Yes - HEMATOLOGY/ONCOLOGY Hx Hematology/Oncology Disorders: No Family Medical History Any Significant Family History?: Yes Hx Cancer: Father Hx Diabetes: Brother/Sister *Diabetes Comment: aunt Hx Heart Disease: Mother *Heart Comment: CHF Hx Kidney Disease: Brother/Sister Hx Resp Disorders: Brother/Sister H&P Meds/Allergies - Allergies Allergies: Allergies Allergy/AdvReac Type Severity Reaction Status Date / Time Penicillins Allergy Intermediate HIVES Verified 02/09/19 10:48 erythromycin lactobionate Allergy HIVES Verified 02/09/19 10:48 [From Erythrocin] - Active Medications Active Medications: Current Medications Acetaminophen (Tylenol 325mg) 650 mg PO Q6H PRN PRN Reason: PAIN - MILD(1-4)/FEVER Aspirin (Aspirin, Regular) 325 mg PO DAILY [facility] Clopidogrel Bisulfate (Plavix) 75 mg PO DAILY [facility] Last Admin: 02/09/19 13:39 Dose: 75 mg Documented by: Ezetimibe (Zetia) 10 mg PO DAILY [facility] Last Admin: 02/09/19 13:39 Dose: 10 mg Documented by: Sertraline HCl (Zoloft) 100 mg PO QHS [facility] Simvastatin (Zocor) 40 mg PO DAILY [facility] Last Admin: 02/09/19 13:39 Dose: 40 mg Documented by: Physical Exam - Vital Signs Vital Signs: Vital Signs - Last 24 Hrs Temp Pulse Pulse Resp BP BP Pulse Ox 02/09/19 13:06 85 18 02/09/19 12:47 85 18 93 L 02/09/19 11:26 85 17 133/85 92 L 02/09/19 10:38 98.5 F 98 H 17 115/77 95 - General General Appearance: Alert, Oriented x3, Cooperative, No acute distress Limitations: No limitations - Head Head exam: Atraumatic, Normocephalic - Eye Eye exam: Normal appearance, PERRL - ENT Throat exam: Normal inspection. negative: Tonsillar erythema, Tonsillar exudate - Neck Neck exam: Normal inspection, Full ROM. negative: Tenderness - Respiratory Respiratory exam: Normal lung sounds bilaterally. negative: Respiratory distress - Cardiovascular Cardiovascular Exam: Regular rate, Normal rhythm, Normal heart sounds. negative: Diastolic murmur, Systolic murmur Peripheral Pulses: 2+: Dorsalis Pedis (R), Dorsalis Pedis (L), 3+: Radial (R), Radial (L) - GI/Abdominal GI/Abdominal exam: Soft, Normal bowel sounds. negative: Tenderness - Extremities Extremities exam: negative: Normal inspection (The L arm and leg are contracted upper > lower.) - Neurological Neurological exam: Abnormal gait, Alert, Motor sensory deficit (The L arm has no motor function and the L leg is 2/5 in strength. The patient states the strength presently is at his baseline. He is just unable to make it work like he normally is able to. He is unable to lift the L leg off the bed and he states that is normal for him. Stregnth 2/5 LLE/LUE), Oriented X3, Other (The patient does state he has normal sensation to light touch to the L arm and leg which is no rmal for the patient.). negative: Normal gait Results - Labs Result Diagrams: 02/09/19 10:35 02/09/19 10:35 Labs Last 24 Hours: Laboratory Results - last 24 hr 02/09/19 02/09/19 02/09/19 10:35 10:35 10:35 WBC 6.5 RBC 4.52 Hgb 12.8 L Hct 40.2 L MCV 88.9 MCH 28.3 MCHC 31.8 L RDW 16.4 H Plt Count 166 MPV 9.6 Gran % 66.8 Lymphocytes % 22.0 Monocytes % 10.1 H Eosinophils % 0.9 Basophils % 0.2 Absolute Neutrophils 4.32 PT 10.5 INR 1.0 APTT 24.7 Sodium 142 Potassium 4.2 Chloride 102 Carbon Dioxide 27.0 Anion Gap 13.0 BUN 16 Creatinine 1.0 Estimated GFR > 60 Random Glucose 144 H Calcium 8.7 L Total Bilirubin 0.60 AST 41 ALT 42 H Alkaline Phosphatase 85 Troponin T < 0.010 NT-Pro-B Natriuret Pep 93.22 Total Protein 7.3 Albumin 4.4 Globulin 2.9 Albumin/Globulin Ratio 1.5 VTE H&P Assessment - Risk for VTE Risk for VTE: Yes Risk Level: High Risk Assessment Date: 02/09/19 Risk Assessment Time: 20:18 VTE Orders Placed or Will Be Placed: Yes Plan - Inpatient Certification Inpatient Certification: Admit to inpatient care: Based on my medical assessment, after consideration of patient's risk factors (age, co-morbidities and patient presenting symptoms and acuity), I expect that this patient will remain in the hospital greater than or equal to two midnights and that the services needed warrant inpatient care because: Patient Risk Factors: Fall Estimated length of stay: [] The patient may reasonably be expected to be discharged or transferred to a hospital within 96 hours after admission to [facility]. Services needed: PT/OT I certify that my determination is in accordance with my understanding of Medicare requirements for reasonable and necessary inpatient services. 02/09/19 14:15 - Detailed Diagnosis and Plan (1) History of CVA (cerebrovascular accident) Current Visit: Yes Status: Acute Base Code: Z86.73 - PRSNL HX OF TIA (TIA), AND CEREB INFRC W/O RESID DEFICITS Comment: 02/09/19: - Hx of Frontoparietal infarct with residual left sided motor deficits. - CT head w/ contrast with no evidence of new infarct. - Resume Zetia 10mg daily, Simvastatin 40mg daily, Plavix 75mg daily. (2) Weakness Current Visit: Yes Status: Acute Base Code: R53.1 - WEAKNESS Comment: 02/09/19: - Current motor deficits 2/5 LUE/LLE. - CT head w/o evidence of new infarct. - Resume statin, zetia and plavix. Full dose ASA - hall monitor - Bed alarm and fall precuations. - Consult PT/OT for rehab placement. (3) Fall Current Visit: No Status: Acute Base Code: W19.XXXA - UNSPECIFIED FALL, INITIAL ENCOUNTER Comment: 02/09/19: - Mechanical fall 2/2 weakness. - Ambulation with assistance, fall precuations. - PT/OT ordered (4) Anxiety Current Visit: Yes Status: Acute Base Code: F41.9 - ANXIETY DISORDER, UNSPECIFIED Comment: 02/09/19: - Zoloft 100mg QHS (5) DVT prophylaxis Current Visit: No Status: Acute Base Code: [id number] - Comment: 02/09/19: - Pt on DAPT therapy with ASA and Plavix. Will hold on Lovenox 40mg daily sq and encourage ambulation and SCDs while in bed. (6) Full code status Current Visit: Yes Status: Acute Base Code: Z78.9 - OTHER SPECIFIED HEALTH STATUS Comment: 02/09/19: - Full code status.
[2019-02-09] MEDS ORDERED: NYSTATIN 15 GM TUBE TOP PRN (14:51)
[2019-02-09] MEDS ORDERED: ZINC OXIDE 28.35 GM TUBE TOP PRN (14:51)
[2019-02-09] MEDS ORDERED: SERTRALINE HCL 50 MG TABLET PO SCH (22:00)
--- NOTE | 2019-02-10 08:02 | Physician Progress Note ---
Subjective - Date Date of Physician Progress Note: 02/10/19 - Subjective Subjective Comment: Mr. Rosales is awake, alert and oriented on examination this morning. He has no new complaint overnight and no progression of presenting symptoms. Objective - Vital Signs Vital Signs: Vital Signs - Last 24 Hrs Temp Pulse Pulse Pulse Resp BP BP 02/10/19 07:51 97.6 F 80 14 134/78 02/10/19 05:20 98.1 F 74 16 118/59 02/09/19 21:00 78 16 02/09/19 20:00 98.6 F 78 16 136/64 02/09/19 17:30 97.7 F 53 L 15 140/59 02/09/19 13:06 85 18 02/09/19 13:00 98.3 F 72 16 154/77 02/09/19 12:47 85 18 02/09/19 11:26 85 17 133/85 02/09/19 10:38 98.5 F 98 H 17 115/77 Pulse Ox 02/10/19 07:51 95 02/10/19 05:20 94 L 02/09/19 21:00 02/09/19 20:00 93 L 02/09/19 17:30 91 L 02/09/19 13:06 02/09/19 13:00 94 L 02/09/19 12:47 93 L 02/09/19 11:26 92 L 02/09/19 10:38 95 - General General Appearance: Alert, Oriented x3, Cooperative, No acute distress Limitations: No limitations - Head Head exam: Atraumatic, Normocephalic - Eye Eye exam: Normal appearance, PERRL - ENT Throat exam: Normal inspection. negative: Tonsillar erythema, Tonsillar exudate - Neck Neck exam: Normal inspection, Full ROM. negative: Tenderness - Respiratory Respiratory exam: Normal lung sounds bilaterally. negative: Respiratory distress - Cardiovascular Cardiovascular Exam: Regular rate, Normal rhythm, Normal heart sounds, Systolic murmur. negative: Diastolic murmur Peripheral Pulses: 2+: Dorsalis Pedis (R), Dorsalis Pedis (L), 3+: Radial (R), Radial (L) - GI/Abdominal GI/Abdominal exam: Soft, Normal bowel sounds. negative: Tenderness - Extremities Extremities exam: negative: Normal inspection (The L arm and leg are contracted upper > lower.) - Neurological Neurological exam: Abnormal gait, Alert, Motor sensory deficit (The L arm has no motor function and the L leg is 2/5 in strength. The patient states the strength presently is at his baseline. He is just unable to make it work like he normally is able to. He is unable to lift the L leg off the bed and he states that is normal for him. Stregnth 2/5 LLE/LUE), Oriented X3, Other (LLE stregnth reamains 2/5. ). negative: Normal gait Assessment and Plan - Assessment and Plan (1) Weakness Current Visit: Yes Status: Acute Base Code: R53.1 - WEAKNESS Comment: 02/10/19: - Current motor deficits 2/5 LUE/LLE. - CT head w/o evidence of new infarct. - Resume statin, zetia and plavix. Full dose ASA - home comfort advisor - Bed alarm and fall precuations. - Consult PT/OT for rehab placement. (2) Fall Current Visit: No Status: Acute Base Code: W19.XXXA - UNSPECIFIED FALL, INITIAL ENCOUNTER Comment: 02/10/19: - Mechanical fall 2/2 weakness. - Ambulation with assistance, fall precuations. - PT/OT ordered (3) History of CVA (cerebrovascular accident) Current Visit: Yes Status: Acute Base Code: Z86.73 - PRSNL HX OF TIA (TIA), AND CEREB INFRC W/O RESID DEFICITS Comment: 02/10/19: - Hx of Frontoparietal infarct with residual left sided motor deficits. - CT head w/ contrast with no evidence of new infarct. - Resume Zetia 10mg daily, Simvastatin 40mg daily, Plavix 75mg daily. (4) Anxiety Current Visit: Yes Status: Acute Base Code: F41.9 - ANXIETY DISORDER, UNSPECIFIED Comment: 02/10/19: - Zoloft 100mg QHS (5) DVT prophylaxis Current Visit: No Status: Acute Base Code: [id number] - Comment: 02/10/19: - Pt on DAPT therapy with ASA and Plavix. Will hold on Lovenox 40mg daily sq and encourage ambulation and SCDs while in bed. (6) Full code status Current Visit: Yes Status: Acute Base Code: Z78.9 - OTHER SPECIFIED HEALTH STATUS Comment: 02/10/19: - Full code status. Results - Labs Result Diagrams: 02/09/19 10:35 02/09/19 10:35 Labs Last 24 Hours: Laboratory Results - last 24 hr 02/09/19 02/09/19 02/09/19 10:35 10:35 10:35 WBC 6.5 RBC 4.52 Hgb 12.8 L Hct 40.2 L MCV 88.9 MCH 28.3 MCHC 31.8 L RDW 16.4 H Plt Count 166 MPV 9.6 Gran % 66.8 Lymphocytes % 22.0 Monocytes % 10.1 H Eosinophils % 0.9 Basophils % 0.2 Absolute Neutrophils 4.32 PT 10.5 INR 1.0 APTT 24.7 Sodium 142 Potassium 4.2 Chloride 102 Carbon Dioxide 27.0 Anion Gap 13.0 BUN 16 Creatinine 1.0 Estimated GFR > 60 Random Glucose 144 H Calcium 8.7 L Total Bilirubin 0.60 AST 41 ALT 42 H Alkaline Phosphatase 85 Troponin T < 0.010 NT-Pro-B Natriuret Pep 93.22 Total Protein 7.3 Albumin 4.4 Globulin 2.9 Albumin/Globulin Ratio 1.5 DVT/PE Assessment - Risk for VTE Risk for VTE: No Risk Level: High Risk Assessment Date: 02/09/19 Risk Assessment Time: 20:18 VTE Orders Placed or Will Be Placed: Yes - Active Medicaitons Current Medications: Current Medications Acetaminophen (Tylenol 325mg) 650 mg PO Q6H PRN PRN Reason: PAIN - MILD(1-4)/FEVER Aspirin (Aspirin, Regular) 325 mg PO DAILY [facility] Clopidogrel Bisulfate (Plavix) 75 mg PO DAILY [facility] Last Admin: 02/09/19 13:39 Dose: 75 mg Documented by: Ezetimibe (Zetia) 10 mg PO DAILY [facility] Last Admin: 02/09/19 13:39 Dose: 10 mg Documented by: Nystatin () 5 gm TOP ASDIR PRN PRN Reason: RASH Sertraline HCl (Zoloft) 100 mg PO QHS [facility] Last Admin: 02/09/19 21:06 Dose: 100 mg Documented by: Simvastatin (Zocor) 40 mg PO DAILY [facility] Last Admin: 02/09/19 13:39 Dose: 40 mg Documented by: Zinc Oxide (Desitin) 10 gm TOP ASDIR PRN PRN Reason: RASH AMI Plan - Labs Result Diagrams: 02/09/19 10:35 12/05/19 10:35
[2019-02-10] MEDS: CLOPIDOGREL 75MG TABLET PO SCH (09:33)
[2019-02-10] MEDS: SIMVASTATIN 20 MG TABLET PO SCH (09:33)
[2019-02-10] MEDS ORDERED: ASPIRIN 325 MG TABLET PO SCH (10:00)
--- NOTE | 2019-02-10 11:53 | Rehab Evaluation ---
Patient Information - Patient Information Diagnosis: L Leg Weakness with hx of CVA Ordered Treatment: PT Evaluate and Treat Status: Initial Evaluation Surgery: No Past Medical/Surgical Hx: PAST MEDICAL/SURGICAL HISTORY Past Surgical History MICKEY hip replacement right knee left achilles back cataract PMH - Respiratory Hx Respiratory Disorders Yes Hx Sleep Apnea Yes Hx of CPAP Yes PMH - Cardiovascular Hx Cardiovascular Disorders Yes Hx Hypertension Yes PMH - Neuro Hx Neurological Disorders Yes Hx Cerebrovascular Accident Yes: 2002, 2005 X2, Left side weakness Hx Seizures No Comment: Rhizotomy 2014 PMH - GI Hx Gastrointestinal Disorders No PMH - Hx Genitourinary Disorders Yes Hx Kidney Stones Yes: hx PMH - Endocrine Hx Endocrine Disorders No Hx Diabetes No Hx Thyroid Disease No PMH - Musculoskeletal Hx Musculoskeletal Disorders Yes Hx Arthritis Yes PMH - Psych Hx Psychiatric Problems Yes Hx Anxiety Yes Hx Depression Yes PMH - Hematology/Oncology Hx Hematology/Oncology No Disorders Premorbid Status: Detail (Patient reported that he fell yesterday and was unable to get off of the floor. He has had increasing weakness over the last couple of weeks. Patient reports that he ambulates with the donna-cane in the home. His stated that he has had increasing weakness and is not able to climb a flight of stairs anymore.) Social History: Detail (Patient lives in a 2-story home with his . He reports that he does not use the basement or second floor anymore due to the recent onset of weakness. There are 2 steps to enter the home with bilateral handrails. The patient's bedroom and bathroom are on the first floor. In the bathroom there is a walk-in shower with grab bars, but no hand held shower head. The patient stated that he has a shower bench but doesn't it use it regularly. His toilet is of standard height and there are no grab bars, but he says that he uses the sink to help stand. Patient reports that his does the cooking and cleaning. She also assists him with dressing and showering. The patient states that he is unable to get up off of the floor on his own. He has a donna-walker that he uses regularly for ambulation. He also has a cane, a manual WC, and a power chair.) Precautions: [place], Fall (Patient reports that he has been becoming weaker, particularly on the L side over the past few weeks. He fell yesterday, and has had a couple of falls during the past month. Patient's reports that he has had difficulty with climbing a full flight of stairs due to the weakness.) - Time With Patient Total Time Spent With Patient (Min): 30 Treatment Procedures: Detail (Initial evaluation; low compelxity The patient was left in the bedside chair with his call light and bedside table within reach. His was in the room with him and the nursing staff was notified of his position.) Subjective Information - Subjective Information Per Patient Objective Data - Mental Status Patient Orientation: Oriented x3 - Visual Perception Appears within normal limits for therapeutic activities - ROM Other (R LE AROM is within normal limits for functional activities. L hip AROM is 50% limited. Patient was unable to produce L knee flexion actively, but was able to move the L leg back with use of the R leg. L knee extension 75% limited. Ankle DF and PF was not able to be actively produced by the patient.) - Strength/Tone Other (R LE strength: flexion 3+/5, abduction and adduction 4/5, knee flexion 4/5, knee extension 5/5, dorsiflexion 5/5; L hip flexion 3+/5, L adduction and abduction 4/5, L LE strength was influence by the tone from the patient's prior CVA; [place] scale: trunk level 4 (no anterior or posterior tilt or lateral weight shift, L hip level 2 (hip was able to be moved through the ROM but tone could be felt), L knee level 3 (increased tone, difficult to move patient through passive ROM), L ankle level 4 (ankle was rigid)) - Bed Mobility Needs Assist (Patient needed mod assist of 1 to move from supine to sitting. From sitting to supine he was independent. Patient needed verbal cuing in sitting to shift his body so that he was sitting straight forward.) - Transfers Needs Assist (Patient needed min assist of 1 for sit to stand from a raised surface. From stand to sit he was independent, but had no control moving from stand to sit.) - Balance Balance Sitting: Fair (Patient needed assistance to maintain upright posture during strength testing and UE support on the bedrails. When given perturbations he had small amounts of postural sway in all directions. He was unable to perform lateral weight shifts in sitting.) Balance Standing: Fair (Patient demonstrates fair balance in standing with the donna-walker. He ambulates with excessive lateral trunk sway.) - Gait Detail (Patient ambulated 25 feet over smooth surfaces with contact guard of 1 and use of the donna-walker. He had an AFO on the L LE. During ambulation he uses a step-to gait pattern, and has increased flexion of the L UE. When ambulating, the patient is turned to the side and not oriented forwards.) Therapy Assessment - Therapy Assessment Detail (Patient presents with decreased LE strength, assistance for transfers, and gait abnormalities that make him a good candidate for inpatient therapy and once discharged from [facility] outpatient therapy short term outpt. PT to update HEP for balance, tone reduction exercises/techniques and gait training. Due to pt. being close to baseline per his report subacute rehab is not recommended.) Problem List - Problem List Physical Therapy Problem List: Detail (1. Decreased LE strength 2. Increased tone of L LE 3. Gait abnormalities 4. Assistance for transfers and bed mobility 5. Decreased balance 6. Decreased tolerance for stairs) Goals - Goals Physical Therapy Goals: 1. The patient will be able to complete bed mobility with min assist of 1. 2. The patient will be able to complete sit to stand transfers independently. 3. The patient will be able to ambulate household distances independently with the donna-walker to get around his home safely following discharge. 4. The patient will be able to ascend and descend 2 stairs to get in and out of his home. Plan - Plan Physical Therapy Plan: The patient will be seen 1-2x a day during his inpatient stay. Therapy will consist of gait training, stair training, transfer trianing, therapeutic exercises and activities, balance training.
--- NOTE | 2019-02-10 13:01 | Rehab Evaluation ---
Patient Information - Patient Information Diagnosis: worsening left leg weakness with h/o CVA Ordered Treatment: OT Evaluate and Treat Status: Initial Evaluation Surgery: No Past Medical/Surgical Hx: PAST MEDICAL/SURGICAL HISTORY Past Surgical History MICKEY hip replacement right knee left achilles back cataract PMH - Respiratory Hx Respiratory Disorders Yes Hx Sleep Apnea Yes Hx of CPAP Yes PMH - Cardiovascular Hx Cardiovascular Disorders Yes Hx Hypertension Yes PMH - Neuro Hx Neurological Disorders Yes Hx Cerebrovascular Accident Yes: 2002, 2005 X2, Left side weakness Hx Seizures No Comment: Rhizotomy 2014 PMH - GI Hx Gastrointestinal Disorders No PMH - Hx Genitourinary Disorders Yes Hx Kidney Stones Yes: hx PMH - Endocrine Hx Endocrine Disorders No Hx Diabetes No Hx Thyroid Disease No PMH - Musculoskeletal Hx Musculoskeletal Disorders Yes Hx Arthritis Yes PMH - Psych Hx Psychiatric Problems Yes Hx Anxiety Yes Hx Depression Yes PMH - Hematology/Oncology Hx Hematology/Oncology No Disorders Premorbid Status: Detail (Patient reported that he fell yesterday and was unable to get off of the floor. He has had increasing weakness over the last couple of weeks. Patient reports that he ambulates with the donna-walker in the home. His stated that he has had increasing weakness and is not able to climb a flight of stairs anymore.) Social History: Detail (Patient lives in a 2-story home with his . He reports that he does not use the basement or second floor. The patient reports there is a ramp at the entrance. The patient's bedroom and bathroom are on the first floor. In the bathroom there is a walk-in shower with grab bars, but no hand held shower head. The patient stated that he has a shower bench but doesn't it use it regularly and he prefers to stand while his assists him with bathing. His toilet is of standard height and there are no grab bars, but he says that he uses the sink to help stand. Patient reports that his does the cooking, laundry and house work. She also assists him with dressing and showering. The patient states that he is unable to get up off of the floor on his own. He has a donna-walker that he uses regularly for ambulation. He also has a cane, a manual WC, trade mark examiner and a power chair.) Precautions: [place], Fall (Patient reports that he has been becoming weaker, particularly on the L side over the past few weeks. He fell yesterday, and has had a couple of falls during the past month. Patient's reports that he has had difficulty with climbing a full flight of stairs due to the weakness.) - Time With Patient Total Time Spent With Patient (Min): 35 Treatment Procedures: Detail (OT eval low complexity) Subjective Information - Subjective Information Per Patient Objective Data - Pain Pain Present: No - Mental Status Patient Orientation: Oriented x3 - Visual Perception Appears within normal limits for therapeutic activities - ROM Not within normal limits (Right UE AROM WNL, left UE AROM and PROM are significantly impaired throughout from premorbid CVA. Pt reports his left UE is at baseline.) - Strength/Tone Not within normal limits (Right UE MMT 4/5 throughout. Left UE not formally tested due to moderate flexor tone.) - Coordination Deficit (Right UE WNL, Left UE is impaired although pt is able to use hand as an assist for ADLs.) - ADL's/IADL's Detail (Pt reports he has not attempted self care tasks since admission. He feels he will not have any difficulty and that he is at baseline with self care tasks.) Therapy Assessment - Therapy Assessment Detail (Pt presents with decreased left UE function from previous CVA. He feels that he is unchanged from prior to admission with his level of Ind with ADLs.) Problem List - Problem List Physical Therapy Problem List: Detail (1. Decreased LE strength 2. Increased tone of L LE 3. Gait abnormalities 4. Assistance for transfers and bed mobility 5. Decreased balance 6. Decreased tolerance for stairs) Occupational Therapy Problem List: Detail (No current IP OT problems identified.) Goals - Goals Physical Therapy Goals: 1. The patient will be able to complete bed mobility with min assist of 1. 2. The patient will be able to complete sit to stand transfers independently. 3. The patient will be able to ambulate household distances independently with the donna-walker to get around his home safely following discharge. 4. The patient will be able to ascend and descend 2 stairs to get in and out of his home. Occupational Therapy Goals: No current IP OT goals identified as pt is at baseline with self cares. Prognosis - Prognosis Moderate Plan - Plan Physical Therapy Plan: The patient will be seen 1-2x a day during his inpatient stay. Therapy will consist of gait training, stair training, transfer trianing, therapeutic exercises and activities, balance training. Occupational Therapy Plan: No further IP OT recommended at this time. Feel pt is at baseline with ADLs. Thank you for this referral.
[2019-02-10] MEDS: EZETIMIBE 10 MG TABLET PO SCH (14:15)
--- NOTE | 2019-02-10 15:17 | Discharge Summary ---
Providers Discharge Summary Date: 02/10/19 Date of admission: 02/09/19 12:43 Attending physician: HUE SWANN Primary care physician: JIM AYON D.O. Physical Exam - Vital Signs Vital Signs: Vital Signs - Last 24 Hrs Temp Pulse Pulse Resp BP BP Pulse Ox 02/10/19 13:49 98.8 F 129/69 02/10/19 12:00 98.8 F 82 16 129/69 90 L 02/10/19 09:00 16 02/10/19 07:51 97.6 F 80 14 134/78 95 02/10/19 05:20 98.1 F 74 16 118/59 94 L 02/09/19 21:00 78 16 02/09/19 20:00 98.6 F 78 16 136/64 93 L 02/09/19 17:30 97.7 F 53 L 15 140/59 91 L - General General Appearance: Alert, Oriented x3, Cooperative, No acute distress Limitations: No limitations - Head Head exam: Atraumatic, Normocephalic - Eye Eye exam: Normal appearance, PERRL - ENT Throat exam: Normal inspection. negative: Tonsillar erythema, Tonsillar exudate - Neck Neck exam: Normal inspection, Full ROM. negative: Tenderness - Respiratory Respiratory exam: Normal lung sounds bilaterally. negative: Respiratory distress - Cardiovascular Cardiovascular Exam: Regular rate, Normal rhythm, Normal heart sounds, Systolic murmur. negative: Diastolic murmur Peripheral Pulses: 2+: Dorsalis Pedis (R), Dorsalis Pedis (L), 3+: Radial (R), Radial (L) - GI/Abdominal GI/Abdominal exam: Soft, Normal bowel sounds. negative: Tenderness - Extremities Extremities exam: negative: Normal inspection (The L arm and leg are contracted upper > lower.) - Neurological Neurological exam: Abnormal gait, Alert, Motor sensory deficit (The L arm has no motor function and the L leg is 2/5 in strength. The patient states the strength presently is at his baseline. He is just unable to make it work like he normally is able to. He is unable to lift the L leg off the bed and he states that is normal for him. [place] 2/5 LLE/LUE), Oriented X3, Other (LLE [place] 2/5. ). negative: Normal gait Hospitalization - Hospitalization Admission Diagnosis: 1. Worsening L Leg Weakness with hx of CVA. - Problem List/Discharge Diagnosis (1) Weakness Current Visit: Yes Status: Acute Base Code: R53.1 - WEAKNESS Comment: 02/10/19: - Current motor deficits 2/5 LUE/LLE. - CT head w/o evidence of new infarct. - Resume statin, zetia and plavix. Full dose ASA - quality assurance monitor - Bed alarm and fall precuations. - Consult PT/OT for rehab placement. (2) Fall Current Visit: No Status: Acute Base Code: W19.XXXA - UNSPECIFIED FALL, INI TIAL ENCOUNTER Comment: 02/10/19: - Mechanical fall 2/2 weakness. - Ambulation with assistance, fall precuations. - PT/OT ordered (3) History of CVA (cerebrovascular accident) Current Visit: Yes Status: Acute Base Code: Z86.73 - PRSNL HX OF TIA (TIA), AND CEREB INFRC W/O RESID DEFICITS Comment: 02/10/19: - Hx of Frontoparietal infarct with residual left sided motor deficits. - CT head w/ contrast with no evidence of new infarct. - Resume Zetia 10mg daily, Simvastatin 40mg daily, Plavix 75mg daily. (4) Anxiety Current Visit: Yes Status: Acute Base Code: F41.9 - ANXIETY DISORDER, UNSPECIFIED Comment: 02/10/19: - Zoloft 100mg QHS (5) DVT prophylaxis Current Visit: No Status: Acute Base Code: [id number] - Comment: 02/10/19: - Pt on DAPT therapy with ASA and Plavix. Will hold on Lovenox 40mg daily sq and encourage ambulation and SCDs while in bed. (6) Full code status Current Visit: Yes Status: Acute Base Code: Z78.9 - OTHER SPECIFIED HEALTH STATUS Comment: 02/10/19: - Full code status. - Hospitalization Course Hospital Course: Mr. Rosales is a 83 y/o male who came in after experiencing left leg weakness this afternoon while at home. The patient at baseline has weakness of his left side due to a previous stroke but says that this worsened today. He says he fell side-ways against the wall and his helped to lower him to the ground before EMS arrived. He says his left leg just wouldn't lift up and her couldn't support his weight. He states that he walks using a walking stick since having the stroke and he has had frequent falls since then. The patient denies feeling weakness if the left upper extremity, and he denies headaches, vision changes or slurring of speech. He denies injury during the fall and was able to be lifted up by EMS personnel. ED course: Vitals: BP 115/77 HR 98, RR 17, T 98.9, Sats 95% EKG: sinus with LVH, no acute st-t changes. CXR: negative for acute cardiopulmonary findings. CT head w/o contrast showing old infarct The patient did not show any further decline in neurological function and there were no new deficits noted. The patient is admitted to the general medical floor for further management. The patient was assessed by PT/OT and there was no need for further inpatient PT/OT. He will be discharged home for home therapy and follow up with his PCP as needed. PCP: Dr. Jim Ayon Procedures: Imaging and X-Rays 02/09/19 10:40 CHEST 2 VIEWS [RAD] Stat HEAD WO CONTRAST [CT] Stat Cardiology Procedures 02/09/19 10:40 Natural Resources Manager NOW EKG NOW Abnormal Labs: Abnormal Lab Results 02/09/19 02/09/19 Range/Units 10:35 10:35 Hgb 12.8 L (14.0-18.0) gm/dl Hct 40.2 L (42.0-52.0) % MCHC 31.8 L (32-36) g/dl RDW 16.4 H (11.5-14.5) % Monocytes % 10.1 H (0-9) % Random Glucose 144 H (74-109) mg/dL Calcium 8.7 L (8.8-10.2) mg/dL ALT 42 H (<41) U/L Condition at Discharge: (2) Stable Discharge Medications - Discharge Medications Home Medications: Ambulatory Orders Clopidogrel Bisulfate [Plavix] 75 mg PO DAILY 04/29/14 [Last Taken 1 Day Ago ~02/08/19 75mg] Ezetimibe/Simvastatin [Vytorin 10-40 mg Tablet] 1 each PO DAILY 04/29/14 [Last Taken 1 Day Ago ~02/08/19 1] Sertraline HCl 100 mg PO DAILY 02/22/15 [Last Taken 1 Day Ago ~02/08/19 100mg] Aspirin 81 mg PO QD tab.chew 12/31/16 [Last Taken 1 Day Ago ~02/08/19 81 mg] Discharge Plan - Discharge Instructions Activity at Discharge: Resume Usual Activities As Tolerated Diet at Discharge: Regular Diet Instructions: Weakness (DC) Additional Instructions: Kennedi Martínez will contact you at home to start home Physical Therapy next week. They can be reached 28/09 at [phone]. Make an appointment with Dr. Ayon for within 1-2 weeks of discharge from hospital. Quality Measures - Quality Measures Quality Measures: Advance Directives, Documentation of Current Medications in Medical Record, Elder Maltreatment Screen and Follow-Up Plan, Screening for High Blood Pressure and F/U Documented - Current Medications Quality Measure: Measure #130: Documentation of Current Medications Documentation of Current Medications: <Current Medications Documented/Reviewed> [G8427] - Blood Pressure Screening Quality Measure: Screening for High Blood Pressure and Follow-Up Documented Does Patient Have Any of the Following: Active Dx of HTN Blood Pressure Classification: Pre-Hypertensive BP Reading Systolic Measurement: 129 Diastolic Measurement: 69 Screening for High Blood Pressure: Patient Exclusion, Hx of HTN [G9744] - Advance Directives Quality Measure: Measure #47: Care Plan Advance Directives Established: No Advance Directives Information Provided To Patient: No Advance Directives on File: No Living Will: Yes Power of Workers Compensation Attorney: Yes Power of Workers Compensation Attorney Name: Poonam Rosales Advance Care Planning: <Care Plan/Decision Maker Documented; Discussed & Documented> [[id number]] - Elder Abuse Suspicion Index Screening: Elder Abuse Suspicion Index Screening Rely on people for bathing, dressing, shopping, banking, etc: No Prevented from getting food, clothes, medication, etc: No Made to feel shamed or threatened by someone: No Forced to sign papers or use money against will: No Feel afraid, touched in ways not wanted or hurt physically: No Poor eye contact, withdrawn, malnourished, cuts or bruises: No Screening Result: Negative result EASI Reference Information: Kaye GONZALEZ, Gayla Schroeder, Irving Hunt, Tanika Hargrove.Development and validation of a tool to assist physicians identification of elder abuse: The Elder Abuse Suspicion Index (EASI ). Journal of Elder Abuse and Neglect, 2008; 20 (3): 276-300. - Elder Maltreatment Screen Quality Measures: Elder Maltreatment Screen and Follow-Up Plan Elder Maltreatment Screen: <Negative, No Follow-Up Plan Required> [G8734]
== END 2019-02-10 15:55 | disposition home or self-care (01) ==
LOC: ER 10:22 → INTOOBSV 12:43 → MEDSURG 12:43
PROVIDERS: ADMIT Internal Medicine; ATTEND Internal Medicine
DX: Z86.73 Personal history of transient ischemic attack (TIA), and cerebral infarction without residual deficits (principal); F41.9 Anxiety disorder, unspecified; Z79.01 Long term (current) use of anticoagulants
CPT/HCPCS: 85025; 85730; 85610; 80053; 84484; 83880; 71046; 70450; 93005; 93010; G0378 ×2; J3490 ×2; 99217; 99220; 99285

== ENCOUNTER 2019-02-11 15:49 | Observation (INO) | payer MEDICARE ==
--- NOTE | 2019-02-11 16:21 | Emergency Department Record ---
History of Present Illness - General Stated Complaint: FELL/HEAD INJURY Time Seen by Provider: 02/11/19 16:01 Source: Patient, Family (), EMS Mode of Arrival: Stretcher Limitations: No limitations - History of Present Illness Initial Comments: Pt from home by EMS with C collar in place. Pt in bathroom and slipped in his socks falling to his backside and hitting head on the floor. No LOC. No dizizness, CP, or syncope prior to the fall. "I just slipped in my socks because my left side doesn't work from my stoke". Pt has prior stroke with residual left hemiparesis. Walks with special walker in the home. Was seen and admitted here 02-09-19 for similar fall. Pt discharged yesterday. Pt is on Plavix. Pain ow is "1 of 10" and in head. No neck pain, no arm or hip/leg pain. Lives with in the home. Pt is noted to be soiled with stool on arrival. - Related Data Allergies Allergy/AdvReac Type Severity Reaction Status Date / Time Penicillins Allergy Intermediate HIVES Verified 02/09/19 10:48 erythromycin lactobionate Allergy HIVES Verified 02/09/19 10:48 [From Erythrocin] Review of Systems Constitutional: Denies: Chills, Fever Eyes: Denies: Eye pain ENT: Denies: Congestion, Throat pain Respiratory: Denies: Cough Cardiovascular: Denies: Chest pain, Syncope Endocrine: Denies: Fatigue Gastrointestinal: Denies: Abdominal pain, Nausea, Vomiting Genitourinary: Denies: Frequency Musculoskeletal: Denies: Arthralgia Skin: Denies: Rash Neurological: Denies: Tingling, Tremors Psychiatric: Denies: Anxiety Past Medical History - SOCIAL HISTORY Smoking Status: Never smoker - RESPIRATORY Hx Respiratory Disorders: Yes Hx Sleep Apnea: Yes Hx of CPAP: Yes - CARDIOVASCULAR Hx Cardio Disorders: Yes Hx Hypertension: Yes - NEURO Hx Neuro Disorders: Yes Hx CVA: Yes (2002, 2005 X2, Left side weakness) - GI Hx GI Disorders: No - Hx Genitourinary Disorders: Yes Hx Kidney Stones: Yes (hx) - ENDOCRINE Hx Endocrine Disorders: No Hx Diabetes: No Hx Thyroid Disease: No - MUSCULOSKELETAL Hx Musculoskeletal Disorders: Yes Hx Arthritis: Yes - PSYCH Hx Psych Problems: Yes Hx Anxiety: Yes Hx Depression: Yes - HEMATOLOGY/ONCOLOGY Hx Hematology/Oncology Disorders: No Family Medical History Hx Cancer: Father Hx Diabetes: Brother/Sister *Diabetes Comment: aunt Hx Heart Disease: Mother *Heart Comment: CHF Hx Kidney Disease: Brother/Sister Hx Resp Disorders: Brother/Sister Physical Exam - General General Appearance: Alert, Oriented x3, Cooperative, No acute distress, Other (Pt with poor hygiene and soiled with stool over legs and clothes. ) - Head Head exam: Normocephalic Head exam detail: Contusion, Other (left posterior parietal contusion 3cm diameter. No pain with percussion over skul in area. ) - Eye Eye exam: PERRL, EOMI - ENT ENT exam: Mucous membranes moist Ear exam: Normal external inspection Nasal Exam: Normal inspection Mouth exam: Normal external inspection - Neck Neck exam: Normal inspection. negative: Tenderness - Respiratory Respiratory exam: Normal lung sounds bilaterally. negative: Respiratory distress - Cardiovascular Cardiovascular Exam: Regular rate, Normal rhythm. negative: Tachycardia - GI/Abdominal GI/Abdominal exam: Soft, Normal bowel sounds. negative: Distended, Tenderness - Extremities Extremities exam: negative: Pedal edema - Back Back exam: Reports: Normal inspection - Neurological Neurological exam: Alert, Oriented X3, Other (pt with chroinc residual deficits from prior stroke unchanged per pt. 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 ) - Psychiatric Psychiatric exam: Normal affect, Normal mood - Skin Skin exam: Normal color. negative: Rash Course - Reevaluation(s) Reevaluation #1: 02/11/19 16:23 Head injury with Plavix...to CT of head and c spine. Reevaluation #2: 02/11/19 18:03 CT no bleed. Unchanged from CT two days ago. Pt on Plavix and ASA with head injury from fall at home. Plan for admission for interval scan in AM. LONG talk with pt and about home living situation. is comfortable with him there. She does note increased weakness over the years but last CVA was in 2005. We discussed having social sciences department chair to the home to assist with equipment or an manager of financial. She will pursue this with her primary physician. Disposition Disposition: Admit Clinical Impression: Fall, Head injury without concussion or intracranial hemorrhage, Scalp contusion, Anticoagulant long-term use, History of CVA (cerebrovascular accident) Disposition: Still a Patient at [facility] Decision to Admit: Admit from ER Decision to Admit Date: 02/11/19 Decision to Admit Time: 18:07 Accepting Physician: Dr. Wyatt Time Discussed w/Accepting Physician: 18:07 Condition: (2) Stable Time of Disposition: 18:07 Quality - Quality Measures Quality Measures: N/A - [place] Coma Scale Eye Response: (4) Open spontaneously Motor Response: (6) Obeys commands Verbal Response: (5) Oriented Matty Total: 15 - Blunt Head Trauma - Adult Was CT ordered: Yes Does Patient Have Any of the Following: Taking Antiplatelet Med [place] Score: [address] for Minor Blunt Head Trauma: < CT Done, Appropriate Indication > [G9529] Additional Inclusion Criteria: Within 24hrs (AND) GCS of 15 (AND) CT ordered. [G9530] Indications For CT: Age 65 Years and Older, Taking Anticoagulant Medication - Blood Pressure Screening Does Patient Have Any of the Following: No Blood Pressure Classification: Pre-Hypertensive BP Reading Systolic Measurement: 110 Diastolic Measurement: 89 Screening for High Blood Pressure: < Pre-Hypertensive BP, F/U Documented > [G8950] Pre-Hypertensive Follow-up Interventions: Follow-up with rescreen every year.
--- NOTE | 2019-02-11 17:22 | CT SCAN REPORT ---
EXAMINATION: CT Head without IV Contrast EXAM DATE: 02/11/2019 5:07 PM TECHNIQUE: Standard protocol CT images of the head were obtained without intravenous contrast. Patel l and sagittal reconstructed images were created. INDICATION: fall with head contusion on Plavix COMPARISON: February 09, 2019 HAND DOMINANCE: Unknown. ENCOUNTER: Not applicable FINDINGS: 1. There is no intracranial mass, midline shift, extraaxial fluid collection or hemorrhage. 2. Remote ischemic findings in the right frontal lobe and right parietal lobe in the high right cere facundo is redemonstrated. There is ex vacuo dilatation of the ventricular system as a result. Intracran ial vascular calcifications persist. No acute loss of dutta-white differentiation. 3. No acute calvarial fracture. 4. Visualized orbital rims are unremarkable. 5. Mastoid air cells and paranasal sinuses are clear. IMPRESSION: No acute intracranial findings. No significant interval change from the recent CT evaluation. Dictated by: Juan Ruffin MD on 02/11/2019 5:17 PM. .
--- NOTE | 2019-02-11 17:26 | CT SCAN REPORT ---
EXAMINATION: CT Cervical Spine without IV Contrast EXAM DATE: 02/11/2019 5:07 PM TECHNIQUE: Standard protocol cervical spine CT imaging was performed without intravenous contrast. [place] and sagittal images were reconstructed. INDICATION: fall with head contusion on Plavix COMPARISON: None ENCOUNTER: Not applicable FINDINGS: Vertebral body heights are maintained. There is multilevel loss of disc height most notably from C4-5 through C7-T1. No jumped or perched facets. Spinous processes are intact. Dens interval and cranioce rvical junction are unremarkable. No prevertebral soft tissue swelling. Lateral masses are symmetric. Paraspinal soft tissues are unremarkable. IMPRESSION: No acute cervical spine fracture. Dictated by: Juan Ruffin MD on 02/11/2019 5:20 PM. .
--- NOTE | 2019-02-12 06:00 | History & Physical ---
History of Present Illness - Date of Service Date of Service for History & Physical: 02/12/19 - History of Present Illness Admitting Diagnosis: Fall with head injury on antiplat. (Plavix and ASA) History of Present Illness: Mr. Rosales is a 83 y/o male who was recently discharged from [facility]. He presented 3 days ago with weakness and fall at home. He again had a fall at home while in his bathroom. He says that he slipped and fell backwards. When EMS arrived the patient was alert, oriented but found to have soiled himself. On arrival to the ED the patient had CT of the head without contrast and a CT spine both of which were negative for acute injury. The patient is admitted for observation with neurochecks interval Ct scan this morning. PCP: Dr. Ayon Travel Screening - Travel/Exposure Within Last 30 Days Have you traveled within the last 30 days?: No - Travel/Exposure Within Last Year Have you traveled outside the [place] in the last year?: No - Additonal Travel Details Have you been exposed to anyone with a communicable illness?: No - Travel Symptoms Symptom Screening: Weakness Review of Systems Constitutional: Denies: Chills, Fever Eyes: Denies: Eye pain ENT: Denies: Congestion, Throat pain Respiratory: Denies: Cough Cardiovascular: Denies: Chest pain, Syncope Endocrine: Denies: Fatigue Gastrointestinal: Denies: Abdominal pain, Nausea, Vomiting Genitourinary: Denies: Frequency Musculoskeletal: Denies: Arthralgia Skin: Denies: Rash Neurological: Denies: Tingling, Tremors Psychiatric: Denies: Anxiety Past Medical History - SOCIAL HISTORY Smoking Status: Never smoker Alcohol Use: None Drug Use: None - RESPIRATORY Hx Respiratory Disorders: Yes Hx Sleep Apnea: Yes Hx of CPAP: Yes - CARDIOVASCULAR Hx Cardio Disorders: Yes Hx Hypertension: Yes - NEURO Hx Neuro Disorders: Yes Hx CVA: Yes (2002, 2005 X2, Left side weakness) - GI Hx GI Disorders: No - Hx Genitourinary Disorders: Yes Hx Kidney Stones: Yes (hx) - ENDOCRINE Hx Endocrine Disorders: No Hx Diabetes: No Hx Thyroid Disease: No - MUSCULOSKELETAL Hx Musculoskeletal Disorders: Yes Hx Arthritis: Yes - PSYCH Hx Psych Problems: Yes Hx Anxiety: Yes Hx Depression: Yes - HEMATOLOGY/ONCOLOGY Hx Hematology/Oncology Disorders: No Family Medical History Any Significant Family History?: Yes Hx Cancer: Father Hx Diabetes: Brother/Sister *Diabetes Comment: aunt Hx Heart Disease: Mother *Heart Comment: CHF Hx Kidney Disease: Brother/Sister Hx Resp Disorders: Brother/Sister H&P Meds/Allergies - Allergies Allergies: Allergies Allergy/AdvReac Type Severity Reaction Status Date / Time Penicillins Allergy Intermediate HIVES Verified 02/09/19 10:48 erythromycin lactobionate Allergy HIVES Verified 02/09/19 10:48 [From Erythrocin] Physical Exam - Vital Signs Vital Signs: Vital Signs - Last 24 Hrs Temp Pulse Pulse Pulse Resp BP BP 02/12/19 04:00 98.1 F 84 16 163/88 02/12/19 00:00 99.0 F 94 H 16 136/79 02/11/19 21:00 81 16 02/11/19 19:35 97.8 F 81 16 172/72 02/11/19 19:17 78 20 141/84 02/11/19 16:29 98.1 F 90 20 110/89 Pulse Ox 02/12/19 04:00 94 L 02/12/19 00:00 93 L 02/11/19 21:00 02/11/19 19:35 96 02/11/19 19:17 95 02/11/19 16:29 94 L - General General Appearance: Alert, Oriented x3, Cooperative, No acute distress, Other (Pt with poor hygiene and soiled with stool over legs and clothes. ) Limitations: No limitations - Head Head exam: Normocephalic Head exam detail: Contusion, Other (left posterior parietal contusion 3cm diameter. No pain with percussion over skul in area. ) - Eye Eye exam: PERRL, EOMI - ENT ENT exam: Mucous membranes moist Ear exam: Normal external inspection Nasal Exam: Normal inspection Mouth exam: Normal external inspection - Neck Neck exam: Normal inspection. negative: Tenderness - Respiratory Respiratory exam: Normal lung sounds bilaterally. negative: Respiratory distress - Cardiovascular Cardiovascular Exam: Regular rate, Normal rhythm. negative: Tachycardia - GI/Abdominal GI/Abdominal exam: Soft, Normal bowel sounds. negative: Distended, Tenderness - Extremities Extremities exam: negative: Pedal edema - Back Back exam: Reports: Normal inspection - Neurological Neurological exam: Alert, Oriented X3, Other (pt with chroinc residual deficits from prior stroke unchanged per pt. 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 ) - Psychiatric Psychiatric exam: Normal affect, Normal mood - Skin Skin exam: Normal color. negative: Rash VTE H&P Assessment - Risk for VTE Risk for VTE: Yes Risk Level: High Risk Assessment Date: 02/12/19 Risk Assessment Time: 09:25 VTE Orders Placed or Will Be Placed: No VTE Reason for No Prophylaxis: Contraindicated (2/2 to falls and concern for bleed ) Plan - Detailed Diagnosis and Plan (1) Fall Current Visit: Yes Status: Acute Base Code: W19.XXXA - UNSPECIFIED FALL, INITIAL ENCOUNTER Comment: 02/12/19: - Mechanical fall 2/2 weakness. - Ambulation with assistance, fall precuations. - PT/OT on last visit notes that no MINI needed. Encouraged to have some form of home nursing care to help with ambulation. (2) Head injury without concussion or intracranial hemorrhage Current Visit: Yes Status: Acute Base Code: S09.90XA - UNSPECIFIED INJURY OF HEAD, INITIAL ENCOUNTER Comment: 02/12/19: - Head Injury 2/2 to fall. - CT head negative for acute bleed. Pending interval scan. - Neuro checks Q2 hours. Cranial nerves intact. Left sided hemiparesis unchanged since last visit 2 days ago. 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 - Patient needs home nursing care. - SW already arrange PT/OT at home since last visit. - Encouraged the use of a walker (4) Scalp contusion Current Visit: Yes Status: Acute Base Code: S00.03XA - CONTUSION OF SCALP, INITIAL ENCOUNTER Comment: 02/12/19: - Posterior scalp contusion on examination. Non-tender. (5) History of CVA (cerebrovascular accident) Current Visit: Yes Status: Acute Base Code: Z86.73 - PRSNL HX OF TIA (TIA), AND CEREB INFRC W/O RESID DEFICITS Comment: 02/12/19: - Hx of Frontoparietal infarct with residual left sided motor deficits. - CT head w/ contrast with no evidence of new infarct. Repeat CT 02/11 negatove for acute injury. - Resume Zetia 10mg daily, Simvastatin 40mg daily, Plavix 75mg daily. (6) Anticoagulant long-term use Current Visit: Yes Status: Acute Base Code: Z79.01 - CERTIFIED WELDING INSPECTOR (CURRENT) USE OF ANTICOAGULANTS Comment: 02/12/19: - Held due to fall and possible head injury. - CT head negative x 1. Repeat head CT. - Resume ASA/Plavix if no acute bleed. (7) DVT prophylaxis Current Visit: No Status: Acute Base Code: [id number] - Comment: 02/12/19: - Pt on DAPT therapy with ASA and Plavix. Will hold on Lovenox 40mg daily sq and encourage ambulation and SCDs while in bed. (8) Full code status Current Visit: No Status: Acute Base Code: Z78.9 - OTHER SPECIFIED HEALTH STATUS Comment: 02/12/19: - Full code status.
--- NOTE | 2019-02-12 09:48 | Discharge Summary ---
Providers Discharge Summary Date: 02/12/19 Date of admission: 02/11/19 18:40 Attending physician: HUE SWANN Primary care physician: EDGARDO AYON D.O. Physical Exam - Vital Signs Vital Signs: Vital Signs - Last 24 Hrs Temp Pulse Pulse Pulse Resp BP BP 02/12/19 08:00 98.8 F 83 15 155/80 02/12/19 04:00 98.1 F 84 16 163/88 02/12/19 00:00 99.0 F 94 H 16 136/79 02/11/19 21:00 81 16 02/11/19 19:35 97.8 F 81 16 172/72 02/11/19 19:17 78 20 141/84 02/11/19 16:29 98.1 F 90 20 110/89 Pulse Ox 02/12/19 08:00 92 L 02/12/19 04:00 94 L 02/12/19 00:00 93 L 02/11/19 21:00 02/11/19 19:35 96 02/11/19 19:17 95 02/11/19 16:29 94 L - General General Appearance: Alert, Oriented x3, Cooperative, No acute distress, Other (Pt with poor hygiene and soiled with stool over legs and clothes. ) Limitations: No limitations - Head Head exam: Normocephalic Head exam detail: Contusion, Other (left posterior parietal contusion 3cm diameter. No pain with percussion over skul in area. ) - Eye Eye exam: PERRL, EOMI - ENT ENT exam: Mucous membranes moist Ear exam: Normal external inspection Nasal Exam: Normal inspection Mouth exam: Normal external inspection - Neck Neck exam: Normal inspection. negative: Tenderness - Respiratory Respiratory exam: Normal lung sounds bilaterally. negative: Respiratory distress - Cardiovascular Cardiovascular Exam: Regular rate, Normal rhythm. negative: Tachycardia - GI/Abdominal GI/Abdominal exam: Soft, Normal bowel sounds. negative: Distended, Tenderness - Extremities Extremities exam: negative: Pedal edema - Back Back exam: Reports: Normal inspection - Neurological Neurological exam: Alert, Oriented X3, Other (pt with chroinc residual deficits from prior stroke unchanged per pt. 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 ) - Psychiatric Psychiatric exam: Normal affect, Normal mood - Skin Skin exam: Normal color. negative: Rash Hospitalization - Hospitalization Admission Diagnosis: Fall with head injury on antiplat. (Plavix and ASA) - Problem List/Discharge Diagnosis (1) Fall Current Visit: Yes Status: Acute Base Code: W19.XXXA - UNSPECIFIED FALL, INITIAL ENCOUNTER Comment: 02/12/19: - Mechanical fall 2/2 weakness. - Ambulation with assistance, fall precuations. - PT/OT on last visit notes that no MINI needed. Encouraged to have some form of home nursing care to help with ambulation. (2) Head injury without concussion or intracranial hemorrhage Current Visit: Yes Status: Acute Base Code: S09.90XA - UNSPECIFIED INJURY OF HEAD, INITIAL ENCOUNTER Comment: 02/12/19: - Head Injury 2/2 to fall. - CT head negative for acute bleed. Pending interval scan. - Neuro checks Q2 hours. Cranial nerves intact. Left sided hemiparesis unchanged since last visit 2 days ago. 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 - Patient needs home nursing care. - SW already arrange PT/OT at home since last visit. - Encouraged the use of a walker (4) Scalp contusion Current Visit: Yes Status: Acute Base Code: S00.03XA - CONTUSION OF SCALP, INITIAL ENCOUNTER Comment: 02/12/19: - Posterior scalp contusion on examination. Non-tender. (5) History of CVA (cerebrovascular accident) Current Visit: Yes Status: Acute Base Code: Z86.73 - PRSNL HX OF TIA (TIA), AND CEREB INFRC W/O RESID DEFICITS Comment: 02/12/19: - Hx of Frontoparietal infarct with residual left sided motor deficits. - CT head w/ contrast with no evidence of new infarct. Repeat CT 02/11 negatove for acute injury. - Resume Zetia 10mg daily, Simvastatin 40mg daily, Plavix 75mg daily. (6) Anticoagulant long-term use Current Visit: Yes Status: Acute Base Code: Z79.01 - RESIDENTIAL (CURRENT) USE OF ANTICOAGULANTS Comment: 02/12/19: - Held due to fall and possible head injury. - CT head negative x 1. Repeat head CT. - Resume ASA/Plavix if no acute bleed. (7) DVT prophylaxis Current Visit: No Status: Acute Base Code: [id number] - Comment: 02/12/19: - Pt on DAPT therapy with ASA and Plavix. Will hold on Lovenox 40mg daily sq and encourage ambulation and SCDs while in bed. (8) Full code status Current Visit: No Status: Acute Base Code: Z78.9 - OTHER SPECIFIED HEALTH STATUS Comment: 02/12/19: - Full code status. - Hospitalization Course Disposition: Home Health Service Hospital Course: Mr. Rosales is a 83 y/o male who was recently discharged from [facility]. He presented 3 days ago with weakness and fall at home. He again had a fall at home while in his bathroom. He says that he slipped and fell backwards. When EMS arrived the patient was alert, oriented but found to have soiled himself. On arrival to the ED the patient had CT of the head without contrast and a CT spine both of which were negative for acute injury. The patient is admitted for observation with neurochecks interval Ct scan this morning. Head CT w/o contrast 02/12: negative for acute intracranial bleed or injury. The patient is cleared for discharge. PCP: Dr. Ayon Procedures: Imaging and X-Rays 02/11/19 16:01 CERVICAL SPINE WO CONTRAST [CT] Stat HEAD WO CONTRAST [CT] Stat 02/12/19 07:00 HEAD WO CONTRAST [CT] Stat Condition at Discharge: (2) Stable Discharge Medications - Discharge Medications Home Medications: Ambulatory Orders Clopidogrel Bisulfate [Plavix] 75 mg PO DAILY 04/29/14 [Last Taken 1 Day Ago ~02/08/19 75mg] Ezetimibe/Simvastatin [Vytorin 10-40 mg Tablet] 1 each PO DAILY 04/29/14 [Last Taken 1 Day Ago ~02/08/19 1] Sertraline HCl 100 mg PO DAILY 04/29/14 [Last Taken 1 Day Ago ~02/08/19 100mg] Aspirin 81 mg PO QD tab.chew 12/31/16 [Last Taken 1 Day Ago ~02/08/19 81 mg] Discharge Plan - Discharge Instructions Activity at Discharge: Resume Usual Activities As Tolerated Diet at Discharge: Regular Diet Additional Instructions: Please have home PT follow up arranged as soon as possible. You may resume all of your home medications as prescribed. Use your walker at all times when ambulating and seek assistance when getting up. Quality Measures - Quality Measures Quality Measures: Advance Directives, Documentation of Current Medications in Medical Record, Elder Maltreatment Screen and Follow-Up Plan, Screening for High Blood Pressure and F/U Documented - Current Medications Quality Measure: Measure #130: Documentation of Current Medications Documentation of Current Medications: <Current Medications Documented/Reviewed> [[id number]] - Blood Pressure Screening Quality Measure: Screening for High Blood Pressure and Follow-Up Documented Does Patient Have Any of the Following: No, Active Dx of HTN Blood Pressure Classification: Pre-Hypertensive BP Reading Systolic Measurement: 110 Diastolic Measurement: 89 Screening for High Blood Pressure: < Pre-Hypertensive BP, F/U Documented > [[id number]] Pre-Hypertensive Follow-up Interventions: Lifestyle modifications. Lifestyle Modification: Weight Reduction, Dietary Approaches to Stop Hypertension (DASH) Eating Plan - Advance Directives Quality Measure: Measure #47: Care Plan Advance Directives Established: No Advance Directives Information Provided To Patient: No Advance Directives on File: No Living Will: Yes Power of Paste Worker: Yes Power of Paste Worker Name: Poonam Rosales Advance Care Planning: <Care Plan/Decision Maker Documented; Discussed & Documented> [[id number]] - Elder Abuse Suspicion Index Screening: Elder Abuse Suspicion Index Screening Rely on people for bathing, dressing, shopping, banking, etc: Yes Prevented from getting food, clothes, medication, etc: No Made to feel shamed or threatened by someone: No Forced to sign papers or use money against will: No Feel afraid, touched in ways not wanted or hurt physically: No Poor eye contact, withdrawn, malnourished, cuts or bruises: No Screening Result: Negative result EASI Reference Information: Kaye GONZALEZ, Gayla C, Irving D, Tanika M.Development and validation of a tool to assist physicians identification of elder abuse: The Elder Abuse Suspicion Index (EASI ). Journal of Elder Abuse and Neglect, 2008; 20 (3): 276-300. - Elder Maltreatment Screen Quality Measures: Elder Maltreatment Screen and Follow-Up Plan Elder Maltreatment Screen: <Negative, No Follow-Up Plan Required> [[id number]]
--- NOTE | 2019-02-12 10:19 | CT SCAN REPORT ---
EXAMINATION: CT Head without IV Contrast EXAM DATE: 02/12/2019 9:47 AM TECHNIQUE: Standard protocol CT images of the head were obtained without intravenous contrast. Patel l and sagittal reconstructed images were created. INDICATION: interval CT head injury on Plavix/ASA COMPARISON: Head CT from one day prior. HAND DOMINANCE: Unknown. ENCOUNTER: Not applicable FINDINGS: CT the head without contrast shows no evidence of intracranial mass, hemorrhage, or extra-axial fluid collection. There is no midline shift or mass effect. There is no CT evidence of acute/subacute infa rct. A large chronic right MCA distribution infarct with associated encephalomalacia and ex vacuo dil atation of the right lateral ventricle is again noted. The paranasal sinuses are clear and there is n o mastoid effusion. The orbits are unremarkable. There is no evidence of skull or facial bone fractur e. IMPRESSION: No acute intracranial abnormality. Dictated by: Siddharth Echevarria MD on 02/12/2019 10:10 AM. .
== END 2019-02-12 11:40 | disposition home health service (06) ==
LOC: ER 15:49 → MEDSURG 18:40
PROVIDERS: ADMIT Internal Medicine; ATTEND Internal Medicine
DX: S00.03XA Contusion of scalp, initial encounter (principal); Z79.01 Long term (current) use of anticoagulants; I69.354 Hemiplegia and hemiparesis following cerebral infarction affecting left non-dominant side; R26.89 Other abnormalities of gait and mobility; I10 Essential (primary) hypertension; G47.33 Obstructive sleep apnea (adult) (pediatric); Z91.81 History of falling; M19.90 Unspecified osteoarthritis, unspecified site; Z87.442 Personal history of urinary calculi
CPT/HCPCS: 72125; 70450 ×2; G0378 ×2; 99220; 99285